=== PATIENT | female | born 1950 | race Caucasian/White ===

== ENCOUNTER 2018-02-13 06:09 | Day surgery (SDC) | payer OTHER, MEDICARE ==
[2018-02-12 09:18] VITALS: BMI 29.2
[2018-02-13] MEDS ORDERED: LIDOCAINE 1%/EPI 1:100000 (20 ML MULTI DOSE VIAL) ONE (07:24)
[2018-02-13] MEDS ORDERED: PROPOFOL 20 ML ONE ×5 (07:25)
[2018-02-13] MEDS ORDERED: SUCCINYLCHOLINE CHLORIDE 200 MG/10 ML VIAL ONE (07:25)
[2018-02-13] MEDS ORDERED: MIDAZOLAM HCL 2 MG/2 ML SINGLE DOSE VIAL ONE (07:25)
[2018-02-13] MEDS ORDERED: BUPIVACAINE HCL/PF 0.5% (5MG/ML) 10 ML VIAL ONE (07:25)
[2018-02-13] MEDS ORDERED: ePHEDrine SULFATE 50 MG/1 ML AMPULE ONE (07:25)
[2018-02-13] MEDS ORDERED: DEXAMETHASONE SOD PHOSPHATE 4 MG/1 ML VIAL ONE (07:27)
[2018-02-13] MEDS ORDERED: LIDOCAINE HCL/PF 2% SDV 5ML VIAL ONE (07:27)
[2018-02-13] MEDS ORDERED: KETOROLAC TROMETHAMINE 30 MG/1 ML VIAL ONE (07:27)
[2018-02-13] MEDS ORDERED: ceFAZolin SODIUM 1 GM VIAL ONE (07:27)
--- NOTE | 2018-02-13 08:10 | HP ---
Satellite [facility] - Chief Complaint Chief Complaint: RIGHT KNEE PAIN History Source: Patient - Past Medical History Allergies/Adverse Reactions: Allergies Allergy/AdvReac Type Severity Reaction Status Date / Time codeine AdvReac Severe Vomiting Verified 02/13/18 06:40 - Current Medications Current Medications: Home Medications Medication Instructions Recorded Atorvastatin Ca [Lipitor] 10 mg PO DAILY 02/12/18 Bisoprolol 2.5MG/Hctz 6.25MG [Ziac 1 tab PO DAILY 02/12/18 (Nf)] Cholecalciferol (Vitamin D3) 1,000 unit PO DAILY 02/12/18 [Vitamin D3] Meloxicam 7.5 mg PO DAILY 02/12/18 Multivitamins [Tab-A-Vit -] 1 tab PO DAILY 02/12/18 [place]-3 Fatty Acids/Fish Oil [Fish 1 each PO DAILY 02/12/18 Oil 1,000 mg Capsule] Satellite Physical Exam - Physical Examination Vital Signs: Vital Signs Period Temp Pulse Resp BP Sys/[place] Pulse Ox Last 24 Hr 97.9 F-97.9 F 60-60 20-20 135-135/49-49 98 Extremities: Other (+ JOINT LINE TENDERNESS) Satellite Impression/Plan - Impression/Plan Impression: INTERNAL DERANGEMENT RIGHT KNEE Operative Procedure: ARTHROSCOPY RIGHT KNEE Date to be Performed: 02/13/18
[2018-02-13] MEDS ORDERED: BUPIVACAINE HCL/PF 0.5% (5MG/ML) 10 ML VIAL IJ ONE (08:11)
[2018-02-13] MEDS ORDERED: LIDOCAINE 1%/EPI 1:100000 (50 ML MULTI DOSE VIAL) INF ONE (08:11)
--- NOTE | 2018-02-13 08:56 | OP ---
Operative Note - Note: Operative Date: 02/13/18 Pre-Operative Diagnosis: INTERNAL DERANGEMENT RIGHT KNEE Operation: ARTHROSCOPY RIGHT KNEE WITH PARTIAL LM AND CHONDROPLASTY LFC, LAT PLAT AND MFC Post-Operative Diagnosis: Same as Pre-op Surgeon: Napoleon Mccarthy Anesthesia: General Operative Report Dictated: Yes
[2018-02-13 10:00] VITALS: TEMP 97.5
--- NOTE | 2018-02-13 10:04 | OP ---
DATE OF OPERATION: 02/13/2018 PREOPERATIVE DIAGNOSIS: Internal derangement right knee. POSTOPERATIVE DIAGNOSIS: Internal derangement right knee. PROCEDURE PERFORMED: Arthroscopy right knee, partial lateral meniscectomy and chondroplasty medial femoral condyle, lateral femoral condyle and lateral tibial plateau. SURGICAL ATTENDING: Napoleon Mccarthy MD ANESTHESIA: General with LMA. CLOSURE: 4-0 nylon. COMPLICATIONS: None. CONDITION: To the recovery room in stable condition. DESCRIPTION OF PROCEDURE: The patient was taken to the operating room on February 13, 2018. General anesthesia with LMA was administered by the anesthesiologist. IV Kefzol was administered prophylactically prior to the case. The right lower extremity was prepped and draped in the usual sterile fashion. Medial and lateral infrapatellar portals were then made with a 15 blade, followed by a blunt trocar. The scope was placed in the lateral infrapatellar portal, up into the suprapatellar pouch. The knee was inflated with a cocktail of 10 mL of 1% Xylocaine, 10 mL of 0.5% Marcaine, 20 mL of arthroscopic saline. The procedure was then performed. The were visualized to be clean. The medial and lateral gutters were visualized to be clean. The undersurface of the patella and trochlea were basically intact. With valgus stress on the knee, there were some grade 2-3 changes of the medial femoral condyle. Any loose cartilage was debrided using the shaver. The medial femoral condyle was visualized and found to be intact. The medial meniscus was visualized and probed, and found to be intact. At 90 degrees, the ACL was visualized, probed and found to be intact. In the figure-4 position, the lateral compartment was entered. The lateral meniscus was found to have a complex tear. This was debrided back to smooth, stable meniscal tissue using meniscal biter and arthroscopic shaver. The lateral femoral condyle and lateral tibial plateau had grade 4 changes. Any loose articular cartilage was debrided using the shaver. The knee was irrigated with copious amounts of irrigation. The portals were closed using 4-0 nylon. Prior to closure, 20 mL of 0.5% Marcaine was infused into the knee for postoperative analgesia. A sterile pressure dressing was placed over the knee. The patient was awakened from anesthesia and transferred to the recovery room in stable condition, without complication. Estimated blood loss was negligible. NAPOLEON MCCARTHY M.D. [id number]
[2018-02-13 10:13] VITALS: BP 123/74; PULSE 69
--- NOTE | 2018-02-14 16:06 | PATH ---
Surgical Pathology Report Patient Name: SAROJ FANG [facility]. Rec. #: [id number] /Age/Gender: 1950 (Age: 67) / F Account: [id number] Location: [facility] Taken: 02/13/2018 Received: 02/13/2018 Reported: 02/14/2018 Physicians: Napoleon Mccarthy M.D. Specimen(s) Received RIGHT KNEE SHAVINGS Clinical History Tear right knee Final Diagnosis KNEE SHAVINGS, RIGHT, ARTHROSCOPY: FRAGMENTS OF CARTILAGE, DENSE FIBROCONNECTIVE TISSUE, ADIPOSE TISSUE, AND SYNOVIUM. Electronically Signed Zelda Brady M.D. Gross Description Received in formalin, labeled "right knee shavings," is a 5.0 x 4.5 x 0.6 cm. aggregate of conway-yellow soft tissue fragments. A sales account representative portion is submitted in one cassette. /02/13/2018 saudi02/13/2018
== END 2018-02-13 11:45 | disposition home or self-care (01) ==
LOC: JASU-SURG 06:09
PROVIDERS: ATTEND Orthopaedic Surgery
PROC: 0SBC4ZZ Excision of Right Knee Joint, Percutaneous Endoscopic Approach (ICD-10-PCS; 2018-02-13)
PROC: 0SBC4ZZ Excision of Right Knee Joint, Percutaneous Endoscopic Approach (ICD-10-PCS; principal; 2018-02-13 08:00)
DX: S83.271A Complex tear of lateral meniscus, current injury, right knee, initial encounter (principal); X58.XXXA Exposure to other specified factors, initial encounter; Y93.9 Activity, unspecified; Y92.9 Unspecified place or not applicable
CPT/HCPCS: 88304-TC; 94760

== ENCOUNTER 2019-01-23 15:19 | Observation (INO) | payer OTHER, MEDICARE ==
--- NOTE | 2019-01-23 16:08 | PDOC ---
History of Present Illness - General Chief Complaint: Respiratory Stated Complaint: SENT BY PCP Time Seen by Provider: 01/23/19 16:07 - History of Present Illness Initial Comments: 68 year old female with HTN, HLD, BPPV, and chronic back pain presenting with SOB and cough for the past week. States that she started to get a dry cough last weekend which has worsened over week. SHe went to her PCP who gave her ? cefuroxime? which she believes made her nauseous. Her temperature at hoem has been running in the 99s and she states that she usually runs in the 97s-low 98s. She has had minor relief with her inhaler. She has had nausea and vomiting since Sunday. Denies any chest pain, sputum production, diarrhea, headahce, or other symptoms. 01/23/19 16:25 Past History - Past Medical History Allergies/Adverse Reactions: Allergies Allergy/AdvReac Type Severity Reaction Status Date / Time codeine AdvReac Severe Vomiting Verified 02/13/18 06:40 Home Medications: Ambulatory Orders Atorvastatin Ca [Lipitor] 10 mg PO DAILY 02/12/18 Bisoprolol 2.5MG/Hctz 6.25MG [Ziac (Nf)] 1 tab PO DAILY 02/12/18 Cholecalciferol (Vitamin D3) [Vitamin D3] 1,000 unit PO DAILY 02/12/18 Meloxicam 7.5 mg PO DAILY 02/12/18 Multivitamins [Tab-A-Vit -] 1 tab PO DAILY 02/12/18 [place]-3 Fatty Acids/Fish Oil [Fish Oil 1,000 mg Capsule] 1 each PO DAILY Oxycodone HCl/Acetaminophen [Percocet 5-325 mg Tablet -] 1 - 2 tab PO Q6H #30 tab MDD 8 02/13/18 Anemia: No Asthma: No Cancer: No Cardiac Disorders: No CVA: No COPD: No CHF: No Dementia: No Diabetes: No GI Disorders: No Disorders: No HTN: Yes Hypercholesterolemia: No Liver Disease: No Seizures: No Thyroid Disease: No - Surgical History Orthopedic Surgery: Yes (LEFT TOTAL KNEE;) - Immunization History Immunization Up to Date: No - Suicide/Smoking/Psychosocial Hx Smoking History: Never smoked Have you smoked in the past 12 months: No Information on smoking cessation initiated: No Hx Alcohol Use: No Drug/Substance Use Hx: No Substance Use Type: Alcohol Hx Substance Use Treatment: No *Physical Exam - Vital Signs Last Vital Signs Temp Pulse Resp BP Pulse Ox 97.8 F 90 16 146/71 100 01/23/19 15:29 01/23/19 15:29 01/23/19 15:29 01/23/19 15:29 01/23/19 15:29 ED Treatment Course - LABORATORY CBC & Chemistry Diagram: 01/23/19 16:40 01/23/19 16:40 Medical Decision Making - Medical Decision Making 68 year old female with HTN presenting with cough and SOB for the past week despite 4 days of cefuroxime treatment. Of note she also started lisinopril about one week ago so this could possibly be driving her cough. Left lower lobe reveled some adventitious sounds but CXR normal. PSI/ Port Score 80 and patient seems to have failed outpatient PO antibiotic therapy, also she has been vomiting when taking her PO cefuroxime. If PNA or bronchitis is not ultimately the attributing pathology then ANTONIA-I cough should be investigated further She will need at least short term IV abx therapy. 01/23/19 18:13 *DC/Admit/Observation/Transfer Diagnosis at time of Disposition: Hyponatremia - Discharge Dispostion Condition at time of disposition: Stable - Referrals Referrals: Devorah Gallego MD [Primary Care Provider] - - Patient Instructions - Post Discharge Activity
[2019-01-23] MEDS: ALBUTEROL SO4 2.5/IPRATROPIUM 0.5 INH SOL 3 ML VIAL.NEB. NEB SCH ×3 (16:52→19:15)
[2019-01-23 17:09] LABS: VENOUS PC02 27.2 mmHg (41-51); VENOUS PH 7.54 (7.31-7.41)
[2019-01-23 17:15] LABS: VENOUS PO2 23.4 mmHg (30-40)
[2019-01-23 17:23] LABS: BASO % 0.4 % (0-2.0); EOS % 0.4 % (0-4.5); HEMATOCRIT 38.5 % (32.4-45.2); HEMOGLOBIN 13.4 GM/dL (10.7-15.3); LYMPH % 11.8 % (8-40); MCH 32.9 pg (25.7-33.7); MCHC 34.9 g/dl (32.0-36.0); MEAN CELL VOLUME 94.1 fl (80-96); MONO % 5.3 % (3.8-10.2); NEUT % 82.1 % (42.8-82.8); PLATELET COUNT 291 K/MM3 (134-434); RBC 4.09 M/mm3 (3.60-5.2); RDW 12.4 % (11.6-15.6); WHITE BLOOD COUNT 5.8 K/mm3 (4.0-10.0)
[2019-01-23] MEDS ORDERED: METOCLOPRAMIDE HCL INJECTION 10 MG/2 ML VIAL IVPUSH ONE (17:27)
[2019-01-23] MEDS ORDERED: SODIUM CHLORIDE 0.9% 1000 ML INFUS.BAG IV ONE (17:27)
[2019-01-23] MEDS ORDERED: ALBUTEROL SO4 2.5/IPRATROPIUM 0.5 INH SOL 3 ML VIAL.NEB. NEB ONE ×3 (17:27→19:17)
[2019-01-23] MEDS ORDERED: ACETAMINOPHEN 1000 MG/100 ML VIAL (NON FORMULARY) IVPB ONE (17:27)
[2019-01-23] MEDS ORDERED: MECLIZINE HCL 25 MG TABLET (FP) PO ONE (17:29)
[2019-01-23 17:37] LABS: INR 1.05 (0.83-1.09); PROTHROMBIN TIME (PATIENT) 12.4 SEC (9.7-13.0)
[2019-01-23 17:55] LABS: ALBUMIN 3.9 g/dl (3.4-5.0); ALK PHOS 98 U/L (45-117); ANION GAP 10 MMOL/L (8-16); BILIRUBIN,TOTAL 0.4 mg/dL (0.2-1); BLOOD UREA NITROGEN 15 mg/dL (7-18); CALCIUM 9.5 mg/dL (8.5-10.1); CHLORIDE 96 mmol/L (98-107); CO2 21 mmol/L (21-32); CREATININE 0.4 mg/dL (0.55-1.3); GLUCOSE,RANDOM 138 mg/dL (74-106); POTASSIUM 4.2 mmol/L (3.5-5.1); SGOT/AST 37 U/L (15-37); SGPT/ALT 70 U/L (13-61); SODIUM 127 mmol/L (136-145); TOT PROT 7.3 g/dl (6.4-8.2)
--- NOTE | 2019-01-23 18:04 | PDOC ---
Documentation entered by Linda Tao SCRIBE, acting as scribe for Gayle Aragon DO. Gayle Aragon DO: This documentation has been prepared by the Aislinn monroy Daisy, SCRIBE, under my direction and personally reviewed by me in its entirety. I confirm that the documentation accurately reflects all work, treatment, procedures, and medical decision making performed by me. Attending Attestation - Resident Resident Name: Kat Mendieta - ED Attending Attestation I have performed the following: I have examined & evaluated the patient, The case was reviewed & discussed with the resident, I agree w/resident's findings & plan - HPI HPI: 01/23/19 17:20 The patient is a 68 YOF with a PMH of HTN, HLD, BPPV, and chronic back pain who presents to the ER with a 1 week history of shortness of breath and dry cough. Patient used her inhaler at home with minimal relief of her shortness of breath. She was given cefuroxime since 01/20, which she reports has made her nauseous. Patient was also seen by Dr. Mati Harman and had her hydrochlorothiazide changed to lisinopril secondary to her hyponatremia. The patient denies chest pain, headache and dizziness. Denies fever, chills, nausea, vomit, diarrhea and constipation. Denies dysuria, frequency, urgency and hematuria. Allergies: codeine Past surgical history: None reported. Social history: No reported alcohol, drug or cigarette use. PCP: Dr. Gallego - Physicial Exam PE: 01/23/19 17:24 ADULT PHYSICAL EXAM Constitutional: Awake, alert, oriented. No acute distress. ENT: Mucous membranes are moist and intact. Posterior pharynx without exudates or erythema. Uvula midline. Cardiovascular: Regular rate. Regular rhythm. S1, S2 regular. Distal pulses are 2+ and symmetric. Pulmonary/Chest: (+) coarse rhonchorous breath sounds at the right base. (+) conversational dyspnea, speaking in 4 word sentences. No wheezing, rales or rhonchi. Abdominal: Soft and non-distended. There is no tenderness. No rebound, guarding or rigidity. No organomegaly. No palpable masses. Good bowel sounds. Musculoskeletal: No edema. No cyanosis. No clubbing. Full range of motion in all extremities. Nocalf tenderness. Radial/pedal pulses are intact and 2+ bilaterally Skin: Skin is warm and dry. Neurological: Cranial nerves II-XII are grossly intact. Psychiatric: Good eye contact. Normal interaction, affect and behavior. - Medical Decision Making 01/23/19 17:54 a/p: 68yo female with sob/cough/sinus congestion and vertigo -hx of bronchitis and hx of BPPV, dizzy and coughing since sunday -saw PMD and started on cerfuroxime -also switched from hctz to lisinopril, no angioedema, suspect more infectious etiology given sinus congestion and coarse bs on R base -will send labs, cultures, cxr, ekg -neb, fluids, meclizine, reglan -pt with conversational dyspnea -will need admission 01/23/19 18:03 cxr clear, coarse bs, will obtain ct to eval for pna 01/23/19 18:12 pt with hyponatremia 01/23/19 18:[address] Syed covering Dr. Mclean overnight, accepts pt to obs for hyponatremia Heart Score/ECG Review - ECG Intrepretation Comment:: 01/23/19 18:03 sinus at 86, nl axis, nl interval, no acute st/t wave findings
[2019-01-23] MEDS ORDERED: VANCOMYCIN 1 GM in D5W (PRE-DOCKED) 1,000 MG/250 ML IVPB ONE (18:22)
[2019-01-23] MEDS ORDERED: PIPERACILLIN/TAZOB 3.375 GM 3.375 GM in DEXTROSE 5%-WATER - 50 ML IVPB ONE (18:23)
[2019-01-23] MEDS ORDERED: MECLIZINE HCL 25 MG TABLET (FP) ONE (18:35)
[2019-01-23] MEDS ORDERED: METOCLOPRAMIDE HCL INJECTION 10 MG/2 ML VIAL ONE (18:35)
[2019-01-23] MEDS ORDERED: PIPERACILLIN/TAZOB 3.375 GM 3.375 GM/50 ML BAG IVPB ONE (18:36)
--- NOTE | 2019-01-23 19:04 | HP ---
CHIEF COMPLAINT: dry cough, nausea, vomiting PCP: [facility] HISTORY OF PRESENT ILLNESS: 68 yo F c/o dry cough and mild shortness of breath since about 01/19. Denied any significant sputum production, sick contacts, fevers, or recent travels. Used inhaler at home with no relief. Patient was switched from HCTZ to lisinopril about 2 wks ago because of hyponatremia. Denied tongue or lip swelling. +Nausea , vomiting. ER course was notable for: (1) tylenol (2) meclizine (3) IV fluids Recent Travel:no PAST MEDICAL HISTORY:HTN, HLD, BPPV, and chronic back pain PAST SURGICAL HISTORY: hip replacement, knee replacement Social History: Smoking: no Alcohol: no Drugs: no Ex PT Family History: none mentioned Allergies codeine Adverse Reaction (Severe, Verified 02/13/18 06:40) Vomiting DIZZINESS-NAUSEA HOME MEDICATIONS: Home Medications Medication Instructions Recorded Atorvastatin Ca [Lipitor] 10 mg PO DAILY 02/12/18 Bisoprolol 2.5MG/Hctz 6.25MG [Ziac 1 tab PO DAILY 02/12/18 (Nf)] Cholecalciferol (Vitamin D3) 1,000 unit PO DAILY 02/12/18 [Vitamin D3] Meloxicam 7.5 mg PO DAILY 02/12/18 Multivitamins [Tab-A-Vit -] 1 tab PO DAILY 02/12/18 [place]-3 Fatty Acids/Fish Oil [Fish 1 each PO DAILY 02/12/18 Oil 1,000 mg Capsule] Oxycodone HCl/Acetaminophen 1 - 2 tab PO Q6H #30 tab MDD 8 02/13/18 [Percocet 5-325 mg Tablet -] REVIEW OF SYSTEMS CONSTITUTIONAL: Absent: fever, chills, diaphoresis, generalized weakness, malaise, loss of appetite, weight change HEENT: Absent: rhinorrhea, nasal congestion, throat pain, throat swelling, difficulty swallowing, mouth swelling, ear pain, eye pain, visual changes CARDIOVASCULAR: Absent: chest pain, syncope, palpitations, irregular heart rate, lightheadedness , peripheral edema RESPIRATORY: Absent:, dyspnea with exertion, orthopnea, wheezing, stridor, hemoptysis present- cough, shortness of breath GASTROINTESTINAL: Absent: abdominal pain, abdominal distension, diarrhea, constipation, melena, hematochezia present- nausea, vomiting, GENITOURINARY: Absent: dysuria, frequency, urgency, hesitancy, hematuria, flank pain, genital pain MUSCULOSKELETAL: Absent: myalgia, arthralgia, joint swelling, back pain, neck pain SKIN: Absent: rash, itching, pallor HEMATOLOGIC/IMMUNOLOGIC: Absent: easy bleeding, easy bruising, lymphadenopathy, frequent infections ENDOCRINE: Absent: unexplained weight gain, unexplained weight loss, heat intolerance, cold intolerance NEUROLOGIC: Absent: headache, focal weakness or paresthesias, dizziness, unsteady gait, seizure, mental status changes, bladder or bowel incontinence PSYCHIATRIC: Absent: anxiety, depression, suicidal or homicidal ideation, hallucinations. PHYSICAL EXAMINATION Vital Signs - 24 hr 01/23/19 15:29 Temperature 97.8 F Pulse Rate 90 Respiratory 16 Rate Blood Pressure 146/71 O2 Sat by Pulse 100 Oximetry (%) GENERAL: Awake, alert, and fully oriented, in no acute distress. HEAD: Normal with no signs of trauma. EYES: Pupils equal, round and reactive to light, extraocular movements intact, sclera anicteric, conjunctiva clear. No lid lag. EARS, NOSE, THROAT: Ears normal, nares patent, oropharynx clear without exudates. dry mucous membranes. NECK: Normal range of motion, supple without lymphadenopathy, JVD, or masses. LUNGS: Breath sounds equal, clear to auscultation bilaterally. No wheezes, and no crackles. No accessory muscle use. HEART: Regular rate and rhythm, normal S1 and S2 without murmur, rub or gallop. ABDOMEN: Soft, nontender, not distended, normoactive bowel sounds, no guarding, no rebound, no masses. MUSCULOSKELETAL: Normal range of motion at all joints. No bony deformities or tenderness. No CVA tenderness. UPPER EXTREMITIES: 2+ pulses, warm, well-perfused. No cyanosis. No clubbing. No peripheral edema. LOWER EXTREMITIES: 2+ pulses, warm, well-perfused. No calf tenderness. No peripheral edema. NEUROLOGICAL: Cranial nerves II-XII intact. Normal speech. PSYCHIATRIC: Cooperative. Good eye contact. Appropriate mood and affect. SKIN: Warm, dry, normal turgor, no rashes or lesions noted, normal capillary refill. Laboratory Results - last 24 hr 01/23/19 01/23/19 01/23/19 16:00 16:40 16:40 WBC 5.8 RBC 4.09 Hgb 13.4 Hct 38.5 MCV 94.1 MCH 32.9 MCHC 34.9 RDW 12.4 Plt Count 291 MPV 8.0 Absolute Neuts (auto) 4.8 Neutrophils % 82.1 Lymphocytes % 11.8 Monocytes % 5.3 Eosinophils % 0.4 Basophils % 0.4 Nucleated RBC % 0 PT with INR 12.40 INR 1.05 VBG pH 7.54 H POC VBG pCO2 27.2 L POC VBG pO2 23.4 L VBG HCO3 22.9 L VBG O2 Sat (Jacqueline) 45.6 L VBG Base Excess 1.7 Sodium Potassium Chloride Carbon Dioxide Anion Gap BUN Creatinine Creat Clearance w eGFR Random Glucose Lactic Acid Calcium Total Bilirubin AST ALT Alkaline Phosphatase Troponin I Total Protein Albumin Influenza A (Rapid) Influenza B (Rapid) 01/23/19 01/23/19 01/23/19 16:40 16:40 16:50 WBC RBC Hgb Hct MCV MCH MCHC RDW Plt Count MPV Absolute Neuts (auto) Neutrophils % Lymphocytes % Monocytes % Eosinophils % Basophils % Nucleated RBC % PT with INR INR VBG pH POC VBG pCO2 POC VBG pO2 VBG HCO3 VBG O2 Sat (Jacqueline) VBG Base Excess Sodium 127 L Potassium 4.2 Chloride 96 L Carbon Dioxide 21 Anion Gap 10 BUN 15 Creatinine 0.4 L Creat Clearance w eGFR 157.80 Random Glucose 138 H Lactic Acid 1.6 Calcium 9.5 Total Bilirubin 0.4 AST 37 ALT 70 H Alkaline Phosphatase 98 Troponin I < 0.02 Total Protein 7.3 Albumin 3.9 Influenza A (Rapid) Negative Influenza B (Rapid) Negative imaging reviewed ekg reviewed ASSESSMENT/PLAN: #68yo woman with sudden onset dry cough. Likely related to ACEi as patient just started this medication and it is common side effect. Do not suspect angioedema at this time. Less likely to be pneumonia as clear lungs, no fever, sputum production. -observation -avoid ACEi -CT of chest to r/o infiltrates - h -benadryl -prednisone -robitussin DM for cough #Hyponatremia - may be related to HCTZ use as patient recently d/c. She appears to be hypovolemic as well. -no diuretics -i/o -daily weights -TSH -urine osm -serum osm -urine cr, na -renal consult -bed rest #Nausea/vomiting - may be related to hyponatremia vs BPPV -meclizine -zofran prn #Chronic back pain -percocet prn - home med #DVT ppx -heparin sc Visit type - Emergency Visit Emergency Visit: Yes ED Registration Date: 01/23/19 Care time: The patient presented to the Emergency Department on the above date and was hospitalized for further evaluation of their emergent condition. - New Patient This patient is new to me today: Yes Date on this admission: 01/23/19 - Critical Care Critical Care patient: No
[2019-01-23] MEDS ORDERED: ONDANSETRON 4 MG/2 ML VIAL IVPUSH PRN (19:07)
[2019-01-23] MEDS ORDERED: MECLIZINE HCL 12.5 MG TABLET PO PRN (19:13)
[2019-01-23] MEDS ORDERED: oxyCODONE HCL 5 MG TABLET PO PRN (19:16)
[2019-01-23] MEDS ORDERED: ACETAMINOPHEN 325 MG TABLET (FP) PO PRN (19:16)
[2019-01-23] MEDS ORDERED: guaiFENesin/D-METHORPHAN HB 10 ML UNIT-DOSE CUPS PO PRN (19:57)
[2019-01-23] MEDS ORDERED: diphenhydrAMINE HCL 25 MG CAPSULE (FP) PO ONE (20:15)
[2019-01-23] MEDS ORDERED: predniSONE 20 MG TABLET (UD) PO ONE (20:15)
[2019-01-23 21:29] LABS: CREATININE, URINE RANDOM 59 mg/dL (30-150)
[2019-01-23] MEDS: SODIUM CHLORIDE 1,000 ML IV SCH (21:45)
[2019-01-23] MEDS: HEPARIN NA (PORCINE) 5,000 UNITS/ML 1ML VIAL SQ SCH (21:46)
[2019-01-24 00:33] VITALS: BMI 28.3
[2019-01-24] MEDS ORDERED: SODIUM CHLORIDE FOR INHALATION 3 ML VIAL.NEB IH PRN (02:18)
[2019-01-24 02:29] LABS: OSMOLALITY,SERUM 270 mosm/kg (278-305)
[2019-01-24 07:10] LABS: BASO % 0.3 % (0-2.0); HEMATOCRIT 36.1 % (32.4-45.2); HEMOGLOBIN 12.4 GM/dL (10.7-15.3); LYMPH % 16.6 % (8-40); MCHC 34.4 g/dl (32.0-36.0); MEAN CELL VOLUME 93.3 fl (80-96); MEAN PLT VOLUME 8.1 fl (7.5-11.1); MONO % 3.4 % (3.8-10.2); NEUT % 79.7 % (42.8-82.8); PLATELET COUNT 296 K/MM3 (134-434); RBC 3.87 M/mm3 (3.60-5.2); RDW 12.4 % (11.6-15.6); WHITE BLOOD COUNT 4.6 K/mm3 (4.0-10.0)
[2019-01-24 08:06] LABS: ANION GAP 9 MMOL/L (8-16); BLOOD UREA NITROGEN 10 mg/dL (7-18); CALCIUM 8.8 mg/dL (8.5-10.1); CHLORIDE 101 mmol/L (98-107); CO2 23 mmol/L (21-32); CREATININE 0.4 mg/dL (0.55-1.3); GLUCOSE,RANDOM 121 mg/dL (74-106); POTASSIUM 3.9 mmol/L (3.5-5.1); SODIUM 134 mmol/L (136-145)
[2019-01-24] MEDS ORDERED: PT OWN MED DRAWER 7, Y5N ONE ×2 (10:27→17:25)
[2019-01-24] MEDS: MULTIVITAMINS (DAILY MVI) TABLET (FP) PO SCH (10:39)
[2019-01-24] MEDS: HEPARIN NA (PORCINE) 5,000 UNITS/ML 1ML VIAL SQ SCH ×2 (10:39→22:03)
--- NOTE | 2019-01-24 10:47 | EKG ---
Test Reason : Blood Pressure : / mmHG Vent. Rate : 086 BPM Atrial Rate : 086 BPM P-R Int : 188 ms QRS Dur : 076 ms QT Int : 376 ms P-R-T Axes : 069 027 053 degrees QTc Int : 449 ms NORMAL SINUS RHYTHM POSSIBLE LEFT ATRIAL ENLARGEMENT NO PREVIOUS ECGS AVAILABLE Confirmed by MARINA MENDEZ MD ([id number]) on 01/24/2019 10:46:54 AM Referred By: Confirmed By:MARINA MENDEZ MD
--- NOTE | 2019-01-24 12:50 | CONSULT ---
Consult - text type - Consultation Consultation Note: Renal consult for Hyponatremia This is a 68 year old woman with Hx of BPPV, Hypertension, HLD, Hyponatremia (suspected due to HCTZ) who presented with complaints of persistent cough, dizziness and weakness and found to have Na of 127 on admission. Prior Na was 134->133->131. HCTZ was discontinued 01/06. She was on HCTZ/Lisinopril and she was maintained on lisinpril alone. PT reports that she recently had a cold but cough did not get better. Was given Abx by PMD but was unable to tolerate it. No fever or chills. No N/V/D. No CP. Denies excessive water intake at home. Oral intake has been poor. Has been unable to sleep the last few days. PMhx: as above Social Hx: No T/A/D Family Hx: NC ROS: as per HPI Home Medications Medication Instructions Recorded Atorvastatin Ca [Lipitor] 10 mg PO DAILY 02/12/18 Bisoprolol 2.5MG/Hctz 6.25MG [Ziac 1 tab PO DAILY 02/12/18 (Nf)] Cholecalciferol (Vitamin D3) 1,000 unit PO DAILY 02/12/18 [Vitamin D3] Meloxicam 7.5 mg PO DAILY 02/12/18 Multivitamins [Tab-A-Vit -] 1 tab PO DAILY 02/12/18 [place]-3 Fatty Acids/Fish Oil [Fish 1 each PO DAILY 02/12/18 Oil 1,000 mg Capsule] Oxycodone HCl/Acetaminophen 1 - 2 tab PO Q6H #30 tab MDD 8 02/13/18 [Percocet 5-325 mg Tablet -] Vital Signs Temperature 97.4 F L 01/24/19 10:00 Pulse Rate 80 01/24/19 10:00 Respiratory Rate 20 01/24/19 10:00 Blood Pressure 135/71 01/24/19 10:00 O2 Sat by Pulse Oximetry (%) 100 01/23/19 22:00 Intake & Output 01/21/19 01/22/19 01/23/19 01/24/19 23:59 23:59 23:59 23:59 Intake Total 0 950 Output Total 1000 Balance 0 -50 Weight 70.398 kg 70.398 kg NAD awake and alert neck supple, no JVD MMM RRR, no M/R CTA, no rales or wheeze soft NT/ND no LE edema, clubbing or cyanosis CBC, BMP 01/24/19 06:00 01/24/19 06:00 Current Medications Acetaminophen (Tylenol -) 325 mg PO Q6H PRN PRN Reason: PAIN LEVEL 6-10 Atorvastatin Calcium (Lipitor -) 10 mg PO HS [facility] Guaifenesin (Robitussin Dm -) 10 ml PO Q6H PRN PRN Reason: COUGH Heparin Sodium (Porcine) (Heparin -) 5,000 unit SQ BID [facility] Last Admin: 01/24/19 10:39 Dose: 5,000 unit Sodium Chloride (Normal Saline -) 1,000 mls @ 75 mls/hr IV ASDIR [facility] Last Admin: 01/23/19 21:45 Dose: 75 mls/hr Losartan Potassium (Cozaar -) 25 mg PO DAILY [facility] Meclizine HCl (Antivert -) 12.5 mg PO Q8H PRN PRN Reason: VERTIGO Multivitamins/Minerals/Vitamin C (Tab-A-Vit -) 1 tab PO DAILY [facility] Last Admin: 01/24/19 10:39 Dose: 1 tab Ondansetron HCl (Zofran Injection) 4 mg IVPUSH Q6H PRN PRN Reason: NAUSEA AND/OR VOMITING Oxycodone HCl (Roxicodone -) 5 mg PO Q6H PRN PRN Reason: PAIN LEVEL 6-10 Sodium Chloride (Normal Saline For Inhalation -) 3 ml IH Q6H PRN PRN Reason: COUGH 68 year old woman with Hx of BPPV, Hypertension, HLD, Hyponatremia ( suspected due to HCTZ) who presented with complaints of persistent cough, dizziness and weakness and found to have Na of 127 on admission. #Acute Hypovolemic hyponatremia now improved #Cough/enlarged Chest LN's/granuloma seen on CT chest #Hypertension #HLD Will continue isotonic saline for additional 12-24 hours no indication for 3% saline oral water intake as per thirst maintain of HCTZ Will switch Lisinopril to losartan as ACEi may be contributing to cough will consult Pulmonary regarding abnormal CT lung findings and persistent cough Thank you Will follow Kimani Charles DO
--- NOTE | 2019-01-24 13:26 | PN ---
Progress Note, Physician Chief Complaint: patient complaining of her cough - Current Medication List Current Medications: Active Medications Acetaminophen (Tylenol -) 325 mg PO Q6H PRN PRN Reason: PAIN LEVEL 6-10 Atorvastatin Calcium (Lipitor -) 10 mg PO HS GABI Guaifenesin (Robitussin Dm -) 10 ml PO Q6H PRN PRN Reason: COUGH Heparin Sodium (Porcine) (Heparin -) 5,000 unit SQ BID [facility] Last Admin: 01/24/19 10:39 Dose: 5,000 unit Sodium Chloride (Normal Saline -) 1,000 mls @ 75 mls/hr IV ASDIR GABI Last Admin: 01/23/19 21:45 Dose: 75 mls/hr Piperacillin Sod/Tazobactam (Sod 3.375 gm/ Dextrose) 50 mls @ 100 mls/hr IVPB Q8H-IV GABI; Protocol Losartan Potassium (Cozaar -) 25 mg PO DAILY [facility] Meclizine HCl (Antivert -) 12.5 mg PO Q8H PRN PRN Reason: VERTIGO Multivitamins/Minerals/Vitamin C (Tab-A-Vit -) 1 tab PO DAILY [facility] Last Admin: 01/24/19 10:39 Dose: 1 tab Ondansetron HCl (Zofran Injection) 4 mg IVPUSH Q6H PRN PRN Reason: NAUSEA AND/OR VOMITING Oxycodone HCl (Roxicodone -) 5 mg PO Q6H PRN PRN Reason: PAIN LEVEL 6-10 Prednisone (Deltasone -) 40 mg PO DAILY [facility] Fluticasone/Salmeterol (Advair 100mcg/50mcg -) 1 puff IH BID [facility] Sodium Chloride (Normal Saline For Inhalation -) 3 ml IH Q6H PRN PRN Reason: COUGH - Objective Vital Signs: Vital Signs Temperature 97.4 F L 01/24/19 10:00 Pulse Rate 80 01/24/19 10:00 Respiratory Rate 20 01/24/19 10:00 Blood Pressure 135/71 01/24/19 10:00 O2 Sat by Pulse Oximetry (%) 100 01/23/19 22:00 Constitutional: Yes: Calm Cardiovascular: Yes: Regular Rate and Rhythm, S1, S2 Respiratory: Yes: Rhonchi Gastrointestinal: Yes: Normal Bowel Sounds, Soft Edema: No Labs: CBC, BMP 01/24/19 06:00 04/19/19 06:00 INR, PTT INR 1.05 (0.83-1.09) 01/23/19 16:40 Problem List - Problems (1) Cough Assessment/Plan: pulm consult chest ct reviwed prednsione iv abx for now coy change to oral abx cannot tolerate cefuroxime made her nauseous and quessy per patient when she took it as in outpatient- so coy give augmentin advair Code(s): R05 - COUGH (2) Hyponatremia Assessment/Plan: iv f fluids for another 24 hrs renal on board stop hctz Code(s): E87.1 - HYPO-OSMOLALITY AND HYPONATREMIA (3) HTN (hypertension) Assessment/Plan: losartan stop lisinopril as patient is coughing stop hctz bc of hyponatremia Code(s): I10 - ESSENTIAL (PRIMARY) HYPERTENSION (4) HTN (hypertension) Code(s): I10 - ESSENTIAL (PRIMARY) HYPERTENSION
[2019-01-24] MEDS ORDERED: DEXTROSE 5%-WATER - 50 ML IVPB ONE ×2 (14:21→17:20)
[2019-01-24] MEDS ORDERED: PIPERACILLIN/TAZOBACTAM 3.375 GM VIAL IVPB ONE ×2 (14:21→17:20)
[2019-01-24] MEDS: predniSONE 20 MG TABLET (UD) PO SCH (14:28)
[2019-01-24] MEDS: FLUTICASONE/SALMETEROL 100 MCG/50 MCG DISKUS IH SCH ×2 (14:29→22:04)
[2019-01-24] MEDS: PIPERACILLIN/TAZOB 3.375 GM 3.375 GM in DEXTROSE 5%-WATER - 50 ML IVPB SCH ×2 (14:29→17:35)
[2019-01-24] MEDS: LOSARTAN POTASSIUM 50 MG TABLET (FP) PO SCH (14:29)
--- NOTE | 2019-01-24 16:15 | CON.PULM ---
Consult Consult Specialty:: PULMONARY Referred by:: BUCK Reason for Consultation:: COUGH/ABN CT CHEST - History of Present Illness Chief Complaint: COUGH History of Present Illness: 68 year old female with HTN, HLD, BPPV, and chronic back pain presenting with SOB and cough for the past week. States that she started to get a dry cough last weekend which has worsened over week. SHe went to her PCP who gave her ? cefuroxime? which she believes made her nauseous. Her temperature at hoem has been running in the 99s and she states that she usually runs in the 97s-low 98s. She has had minor relief with her inhaler. She has had nausea and vomiting since Sunday. Denies any chest pain, sputum production, diarrhea, headahce, or other symptoms. - History Source History Provided By: Patient, Medical Record Limitations to Obtaining History: No Limitations - Past Medical History RIP TAILER: No: Alzheimer's Cardio/Vascular: Yes: HTN, Hyperlipdemia. No: AFIB Pulmonary: No: COPD Gastrointestinal: No: Cancer Hepatobiliary: No: Cirrhosis Reproductive: Yes: Postmenopausal Heme/Onc: No: Anemia Endocrine: No: Diabetes Mellitus - Past Surgical History Additional Surgical History: HIP REPLACEMENT. KNEE REPLACEMENT - Alcohol/Substance Use Hx Alcohol Use: No - Smoking History Smoking history: Never smoked Have you smoked in the past 12 months: No - Social History ADL: Independent Place of : [facility] History of Recent Travel: No Home Medications - Allergies Allergies/Adverse Reactions: Allergies Allergy/AdvReac Type Severity Reaction Status Date / Time codeine AdvReac Severe Vomiting Verified 02/13/18 06:40 - Home Medications Home Medications: Ambulatory Orders Atorvastatin Ca [Lipitor] 10 mg PO DAILY 02/12/18 Cholecalciferol (Vitamin D3) [Vitamin D3] 1,000 unit PO DAILY 02/12/18 Meloxicam 7.5 mg PO DAILY 02/12/18 Multivitamins [Tab-A-Vit -] 1 tab PO DAILY 02/12/18 [place]-3 Fatty Acids/Fish Oil [Fish Oil 1,000 mg Capsule] 1 each PO DAILY Oxycodone HCl/Acetaminophen [Percocet 5-325 mg Tablet -] 1 - 2 tab PO Q6H #30 tab MDD 8 02/13/18 Losartan Potassium [Cozaar -] 25 mg PO DAILY #30 tablet MDD 1 01/24/19 Family Disease History - Family Disease History Family History: Unremarkable Review of Systems - Review of Systems Cardiovascular: reports: Chest Pain. denies: Edema, Palpitations Respiratory: reports: Cough, SOB on Exertion. denies: Hemoptysis, Wheezing Physical Exam Vital Sings: Vital Signs Temperature 98.2 F 01/24/19 14:02 Pulse Rate 90 01/24/19 14:02 Respiratory Rate 20 01/24/19 14:02 Blood Pressure 142/81 01/24/19 14:02 O2 Sat by Pulse Oximetry (%) 100 01/23/19 22:00 Constitutional: Yes: Calm Eyes: Yes: EOM Intact HENT: Yes: Normocephalic Neck: Yes: Trachea Midline Cardiovascular: Yes: Regular Rate and Rhythm Respiratory: Yes: CTA Bilaterally Gastrointestinal: Yes: Normal Bowel Sounds Edema: No Labs: CBC, BMP 01/24/19 06:00 01/24/19 06:00 Imaging - Results Chest X-ray: Report Reviewed, Image Reviewed Cat Scan: Report Reviewed, Image Reviewed Problem List - Problems (1) Calcified granuloma of lung Code(s): J84.10 - PULMONARY FIBROSIS, UNSPECIFIED (2) Cough Code(s): R05 - COUGH (3) HTN (hypertension) Code(s): I10 - ESSENTIAL (PRIMARY) HYPERTENSION (4) Hyponatremia Code(s): E87.1 - HYPO-OSMOLALITY AND HYPONATREMIA (5) Goiter Code(s): E04.9 - NONTOXIC GOITER, UNSPECIFIED Assessment/Plan COUGH LIKELY DUE TO ACUTE BRONCHITIS ANTONIA CAN BE CONTRIBUTING TO MILD CHRONIC COMPONENT CALCIFIED GRANULOMA OF NO PARTICULAR CONCERN H/O OF MULTINODULAR GOITER LIKELY RESPONSIBLE FOR MEDIASTINAL IMAGING ABNORMALITY WHICH CAN BE FOLLOWED AN OUTPATIENT DISCHARGE PLANNING Mamadou ANG MD
[2019-01-24] MEDS: SODIUM CHLORIDE 1,000 ML IV SCH ×2 (17:30→22:05)
[2019-01-24] MEDS ORDERED: ATORVASTATIN CA 10 MG TABLET (FP) PO SCH (22:00)
[2019-01-25] MEDS ORDERED: PIPERACILLIN/TAZOBACTAM 3.375 GM VIAL IVPB ONE ×2 (00:09→07:58)
[2019-01-25] MEDS ORDERED: DEXTROSE 5%-WATER - 50 ML IVPB ONE ×2 (00:09→07:59)
[2019-01-25] MEDS: PIPERACILLIN/TAZOB 3.375 GM 3.375 GM in DEXTROSE 5%-WATER - 50 ML IVPB SCH ×2 (01:18→09:55)
[2019-01-25 07:58] LABS: BASO % 0.3 % (0-2.0); EOS % 0.2 % (0-4.5); HEMATOCRIT 36.1 % (32.4-45.2); HEMOGLOBIN 12.3 GM/dL (10.7-15.3); LYMPH % 23.2 % (8-40); MCH 31.6 pg (25.7-33.7); MCHC 34.1 g/dl (32.0-36.0); MEAN CELL VOLUME 92.6 fl (80-96); MEAN PLT VOLUME 8.1 fl (7.5-11.1); MONO % 7.1 % (3.8-10.2); NEUT % 69.2 % (42.8-82.8); PLATELET COUNT 302 K/MM3 (134-434); RDW 12.6 % (11.6-15.6); WHITE BLOOD COUNT 6.8 K/mm3 (4.0-10.0)
[2019-01-25 08:23] LABS: ALBUMIN 3.6 g/dl (3.4-5.0); ALK PHOS 77 U/L (45-117); ANION GAP 8 MMOL/L (8-16); BILIRUBIN,TOTAL 0.3 mg/dL (0.2-1); BLOOD UREA NITROGEN 9 mg/dL (7-18); CHLORIDE 101 mmol/L (98-107); CO2 25 mmol/L (21-32); CREATININE 0.4 mg/dL (0.55-1.3); GLUCOSE,RANDOM 88 mg/dL (74-106); MAGNESIUM 2.2 mg/dL (1.8-2.4); POTASSIUM 3.7 mmol/L (3.5-5.1); SGOT/AST 25 U/L (15-37); SGPT/ALT 52 U/L (13-61); SODIUM 134 mmol/L (136-145); TOT PROT 6.8 g/dl (6.4-8.2)
[2019-01-25] MEDS: SODIUM CHLORIDE 1,000 ML IV SCH (08:52)
[2019-01-25 09:41] VITALS: BP 145/75; PULSE 90; TEMP 98.1
[2019-01-25] MEDS: HEPARIN NA (PORCINE) 5,000 UNITS/ML 1ML VIAL SQ SCH (09:55)
[2019-01-25] MEDS: LOSARTAN POTASSIUM 50 MG TABLET (FP) PO SCH (09:55)
[2019-01-25] MEDS: MULTIVITAMINS (DAILY MVI) TABLET (FP) PO SCH (09:56)
[2019-01-25] MEDS: predniSONE 20 MG TABLET (UD) PO SCH (09:56)
[2019-01-25] MEDS: FLUTICASONE/SALMETEROL 100 MCG/50 MCG DISKUS IH SCH (09:58)
--- NOTE | 2019-01-25 10:21 | DS ---
Physical Examination Vital Signs: Vital Signs Temperature 98.1 F 01/25/19 09:40 Pulse Rate 90 01/25/19 09:40 Respiratory Rate 18 01/25/19 09:40 Blood Pressure 145/75 01/25/19 09:40 O2 Sat by Pulse Oximetry (%) 100 01/25/19 04:00 Constitutional: Yes: No Distress Eyes: Yes: WNL HENT: Yes: WNL Neck: Yes: WNL Cardiovascular: Yes: WNL Respiratory: Yes: WNL Gastrointestinal: Yes: WNL Renal/: Yes: WNL Musculoskeletal: Yes: WNL Extremities: Yes: WNL Edema: No Peripheral Pulses WNL: Yes Integumentary: Yes: WNL Wound/Incision: Yes: Clean/Dry Neurological: Yes: WNL ...Motor Strength: WNL Psychiatric: Yes: WNL Labs: CBC, BMP 01/25/19 06:15 01/25/19 06:15 Discharge Summary Reason For Visit: HYPONATREMIA Current Active Problems Calcified granuloma of lung (Acute) Cough (Acute) Goiter (Acute) HTN (hypertension) (Acute) HTN (hypertension) (Acute) Hyponatremia (Acute) Procedures: Principal: CT CHEST Hospital Course: ADMITTED FOR BRONCHITIS/COUGH GIVEN IV STEROIDS, IV ABX HYPONATREMIA IMPROVED Condition: Stable - Instructions Diet, Activity, Other Instructions: TAKE SODIUM TABS DAILY FOR 7 DAYS, HAVE LAB CHECK IN 3 DAYS WITH YOUR PMD PREDNISONE TAPER ADVAIR STARTED CAN DC HOME F/U IN 3 DAYS WITH YOUR PRIMARY DOCTOR Disposition: HOME - Home Medications Comprehensive Discharge Medication List: Ambulatory Orders Atorvastatin Ca [Lipitor] 10 mg PO DAILY 02/12/18 Cholecalciferol (Vitamin D3) [Vitamin D3] 1,000 unit PO DAILY 02/12/18 Meloxicam 7.5 mg PO DAILY 02/12/18 Multivitamins [Multivit ([facility] Formulary)] 1 tab PO DAILY 02/12/18 Losartan Potassium [Cozaar -] 25 mg PO DAILY #30 tablet MDD 1 01/24/19 Acetaminophen [Tylenol .Regular Strength -] 325 mg PO Q6H PRN tablet 01/25/19 Guaifenesin Dm [Robitussin Dm -] 10 ml PO Q6H PRN #1 bottle 01/25/19 Meclizine HCl [Antivert -] 12.5 mg PO Q8H PRN #90 tablet 01/25/19 Salmeterol/Fluticasone [Advair 100Mcg/50Mcg -] 1 puff IH BID #1 inhaler Sodium Chloride Tablet - 1 gm PO DAILY #7 tablet 01/25/19 predniSONE [Deltasone -] See Taper PO DAILY #30 tablet 01/25/19
--- NOTE | 2019-01-25 10:30 | PN ---
Progress Note (short form) - Note Progress Note: ID CONSULT DICTATED TRACHEOBRONCHITIS ? VIRAL ? ATYPICAL SUBSTITUTE PO ZITHROMAX OUTPATIENT F/U
--- NOTE | 2019-01-25 11:01 | PN ---
Progress Note (short form) - Note Progress Note: Renal follow up for Hyponatremia Pt seen and examined at the bedside awake and alert continues to have cough no sob, fever, chills, cp, abd pain, N/V/D Vital Signs Temperature 98.1 F 01/25/19 09:40 Pulse Rate 90 01/25/19 09:40 Respiratory Rate 18 01/25/19 09:40 Blood Pressure 145/75 01/25/19 09:40 O2 Sat by Pulse Oximetry (%) 100 01/25/19 04:00 Intake & Output 01/22/19 01/23/19 01/24/19 01/25/19 23:59 23:59 23:59 23:59 Intake Total 0 2750 1330 Output Total 1700 2900 Balance 0 1050 -1570 Weight 70.398 kg 70.307 kg 70.335 kg NAD MMM RRR, no M/R CTA, no rales or wheeze soft NT/ND no LE edema, clubbing or cyanosis CBC, BMP 01/25/19 06:15 01/25/19 06:15 Current Medications Acetaminophen (Tylenol -) 325 mg PO Q6H PRN PRN Reason: PAIN LEVEL 6-10 Atorvastatin Calcium (Lipitor -) 10 mg PO HS [facility]ABI Last Admin: 01/24/19 22:03 Dose: 10 mg Guaifenesin (Robitussin Dm -) 10 ml PO Q6H PRN PRN Reason: COUGH Heparin Sodium (Porcine) (Heparin -) 5,000 unit SQ BID [facility] Last Admin: 01/25/19 09:55 Dose: 5,000 unit Sodium Chloride (Normal Saline -) 1,000 mls @ 75 mls/hr IV ASDIR GABI Last Admin: 01/25/19 08:52 Dose: 75 mls/hr Piperacillin Sod/Tazobactam (Sod 3.375 gm/ Dextrose) 50 mls @ 100 mls/hr IVPB Q8H-IV GABI; Protocol Last Admin: 01/25/19 09:55 Dose: 100 mls/hr Losartan Potassium (Cozaar -) 25 mg PO DAILY [facility] Last Admin: 01/25/19 09:55 Dose: 25 mg Meclizine HCl (Antivert -) 12.5 mg PO Q8H PRN PRN Reason: VERTIGO Multivitamins/Minerals/Vitamin C (Tab-A-Vit -) 1 tab PO DAILY [facility] Last Admin: 01/25/19 09:56 Dose: 1 tab Ondansetron HCl (Zofran Injection) 4 mg IVPUSH Q6H PRN PRN Reason: NAUSEA AND/OR VOMITING Oxycodone HCl (Roxicodone -) 5 mg PO Q6H PRN PRN Reason: PAIN LEVEL 6-10 Prednisone (Deltasone -) 40 mg PO DAILY [facility] Last Admin: 01/25/19 09:56 Dose: 40 mg Fluticasone/Salmeterol (Advair 100mcg/50mcg -) 1 puff IH BID [facility] Last Admin: 01/25/19 09:58 Dose: 1 puff Sodium Chloride (Normal Saline For Inhalation -) 3 ml IH Q6H PRN PRN Reason: COUGH 68 year old woman with Hx of BPPV, Hypertension, HLD, Hyponatremia ( suspected due to HCTZ) who presented with complaints of persistent cough, dizziness and weakness and found to have Na of 127 on admission. #Acute Hypovolemic hyponatremia now improved #Cough/enlarged Chest LN's/granuloma seen on CT chest #Hypertension #HLD can discontinue IVF as serum Na stable oral water intake as per thirst maintain off HCTZ continue losartan in place of ACEi Pulmonary consult appreciated Discharge planning as per primary stable for discharge with outpatient monitoring from renal perspective Thank you Will follow Kimani Charles DO
--- NOTE | 2019-01-25 11:16 | CONS ---
DATE OF CONSULTATION: DATE OF DICTATION: 01/25/2019 HISTORY OF PRESENT ILLNESS: The patient is a 68-year-old female who is evaluated for bronchitis. She reports developing a cough approximately 1 week prior to admission. She described shortness of breath associated with cough which is dry in nature. She also complained of chest congestion. She was prescribed Ceftin as an outpatient which she took for approximately 4 days. Despite the antibiotic therapy she did not improve. She developed nausea from the antibiotic. Patient was admitted to the hospital where a CAT scan of the chest was performed. It showed evidence of atelectasis at the lung bases and a right upper lobe calcified granuloma; however, no evidence of pneumonia. At the present time she continues to cough. Cough is dry in nature. She denies any purulent sputum production or hemoptysis. No complaints of pleuritic chest pain. She denies fever with chills. Patient lives at home alone. She denies any ill contacts. No recent travel. No recent hospitalizations. She did receive influenza vaccine. PAST MEDICAL HISTORY: Positive for hypertension, hyperlipidemia, chronic back pain. ALLERGIES: CODEINE. MEDICATIONS: Lipitor, vitamin D, meloxicam, oxycodone. SYSTEMS REVIEW:Neurologic: No loss of consciousness, seizure activity, focal weakness. Cardiac: Negative chest pain or palpitations. Respiratory: As per HPI. Gastrointestinal: Negative vomiting or diarrhea. Genitourinary: Negative for urinary tract infection. LABORATORY DATA: White blood cell count 6.8, 69 neutrophils, 23 lymphocytes, 7 monocytes, hematocrit 36.1, platelet count 302. BUN 9, creatinine 0.4. Liver enzymes normal. Influenza swab negative. Blood cultures negative. Chest CAT scan as described. PHYSICAL EXAMINATION: General: She is awake and alert, seated in bed in no acute distress. Vital Signs: Temperature 98.1, blood pressure 145/75, pulse 90, regular, respirations 18 per minute. HEENT: Sclerae are anicteric. Cardiac: Heart sounds S1, S2. Lungs: Diminished breath sounds bilaterally. No rhonchi, rales or wheezing. Abdomen: Soft. No tenderness elicited. Extremities: Negative for edema. There is a healed surgical scar present over the left patella. IMPRESSION: 1. Tracheobronchitis, likely viral or atypical bacterial. 2. No clinical or radiographic evidence of pneumonia. RECOMMENDATIONS: May substitute Zithromax p.o. for outpatient therapy. Steroid taper. Case discussed with the primary care doctor. Thank you for the kind referral. MARINA HATFIELD M.D. SERVANDO/[id number]
== END 2019-01-25 12:41 | disposition home or self-care (01) ==
LOC: JER 15:19 → JERBED 18:42 → J5S 20:37
PROVIDERS: ADMIT Family Medicine; ATTEND Family Medicine
PROC: 3E03329 Introduction of Other Anti-infective into Peripheral Vein, Percutaneous Approach (ICD-10-PCS; principal; 2019-01-23)
PROC: 3E033NZ Introduction of Analgesics, Hypnotics, Sedatives into Peripheral Vein, Percutaneous Approach (ICD-10-PCS; 2019-01-23)
PROC: 3E0337Z Introduction of Electrolytic and Water Balance Substance into Peripheral Vein, Percutaneous Approach (ICD-10-PCS; 2019-01-23)
PROC: 3E033GC Introduction of Other Therapeutic Substance into Peripheral Vein, Percutaneous Approach (ICD-10-PCS; 2019-01-23)
PROC: 3E013GC Introduction of Other Therapeutic Substance into Subcutaneous Tissue, Percutaneous Approach (ICD-10-PCS; 2019-01-23)
PROC: 3E0F7GC Introduction of Other Therapeutic Substance into Respiratory Tract, Via Natural or Artificial Opening (ICD-10-PCS; 2019-01-23)
DX: E87.1 Hypo-osmolality and hyponatremia (principal); E86.1 Hypovolemia; J84.10 Pulmonary fibrosis, unspecified; J40 Bronchitis, not specified as acute or chronic; E04.9 Nontoxic goiter, unspecified; R05 Cough; R11.2 Nausea with vomiting, unspecified; I10 Essential (primary) hypertension; E78.5 Hyperlipidemia, unspecified; M54.5 Low back pain; G89.29 Other chronic pain; Z88.5 Allergy status to narcotic agent
CPT/HCPCS: 36415; 71045-TC-FY; 71250-TC; 80048; 80053; 82565; 82803; 83605; 83735; 83930; 83935; 84100; 84300; 84443; 84484; 85025; 85610; 87040; 87804; 93005; 93010; 94640; 96365; 96372; 96375; 99283-25; G0378; J0131; J1644; J7030

== ENCOUNTER 2019-07-31 06:09 | Inpatient (IN) | payer OTHER, MEDICARE ==
[2019-07-30 15:24] VITALS: BMI 26.8
[~2019-07-31 06:09] MED LIST: BACITRACIN 50,000 UNITS VIAL TP ONE; HYDROGEN PEROXIDE 473 ML PO ONE; VANCOMYCIN 1,000 MG VIAL (RESTRICTED TO ID ONLY) IVPB ONE
[2019-07-31 07:17] LABS: BLOOD UREA NITROGEN 14.4 mg/dL (7-18); CALCIUM 9.9 mg/dL (8.5-10.1); CREATININE 0.6 mg/dL (0.55-1.3)
[2019-07-31] MEDS ORDERED: BUPIVACAINE LIPOSOME/PF (EXPAREL) 266 MG/20 ML VIAL ONE (07:35)
[2019-07-31] MEDS ORDERED: GENTAMICIN SO4 80 MG/2 ML VIAL ONE ×2 (07:35→12:20)
[2019-07-31] MEDS ORDERED: LIDOCAINE 1%-EPI 1:100,000 30 ML MDV IJ ONE (07:35)
[2019-07-31] MEDS ORDERED: VANCOMYCIN 1,000 MG VIAL (RESTRICTED TO ID ONLY) ONE (07:35)
[2019-07-31] MEDS ORDERED: THROMBIN (BOVINE) 20,000 UNIT VIAL TP ONE ×2 (07:36→10:23)
[2019-07-31] MEDS ORDERED: SUCCINYLCHOLINE CHLORIDE 200 MG/10 ML SYRINGE ONE (07:36)
[2019-07-31] MEDS ORDERED: PROPOFOL 20 ML ONE ×5 (07:36)
[2019-07-31] MEDS ORDERED: ROCURONIUM BROMIDE 50 MG/5 ML SYRINGE ONE ×2 (07:37→11:19)
[2019-07-31] MEDS ORDERED: DEXMEDETOMIDINE HCL 200 MCG/2 ML IVPB ONE (07:44)
[2019-07-31] MEDS ORDERED: MORPHINE 5 MG/10 ML AMP - FOR COMPOUNDING USE ONLY ONE (07:46)
[2019-07-31] MEDS ORDERED: LIDOCAINE HCL 1%, 10 MG/ML (20ML VIAL) ONE (07:49)
--- NOTE | 2019-07-31 08:14 | HP ---
History & Physical Update - History History: No Change - Physical Physical: No Change - Assessment Assessment: No Change - Plan Plan: No Change (Initital H&P is located in patient's paper chart. No new medications or complaints.)
[2019-07-31] MEDS ORDERED: CEFAZOLIN 1 GM/D5W 1 GM/50 ML BAG IVPB ONE (08:16)
[2019-07-31] MEDS ORDERED: MIDAZOLAM HCL 2 MG/2 ML SINGLE DOSE VIAL ONE ×3 (08:16→14:54)
[2019-07-31] MEDS ORDERED: VANCOMYCIN 1,000 MG VIAL (RESTRICTED TO ID ONLY) IVPB ONE ×3 (08:25→14:00)
[2019-07-31] MEDS ORDERED: BUPIVACAINE HCL/PF 0.25% (2.5MG/ML) 10 ML VIAL ONE (08:25)
[2019-07-31] MEDS ORDERED: ceFAZolin SODIUM 1 GM VIAL IVPB ONE (08:45)
[2019-07-31] MEDS ORDERED: fentaNYL CITRATE 250 MCG/5 ML VIAL ONE (08:49)
[2019-07-31] MEDS ORDERED: LIDOCAINE 1%/EPI 1:100000 (50 ML MULTI DOSE VIAL) INF ONE (09:14)
[2019-07-31] MEDS ORDERED: GELATIN, ABSORBABLE 100 EACH SPONGE TP ONE (09:18)
[2019-07-31] MEDS ORDERED: THROMBIN (BOVINE) 5,000 UNIT VIAL TP ONE ×4 (09:18→10:29)
[2019-07-31] MEDS ORDERED: HYDROGEN PEROXIDE 473 ML PO ONE (10:07)
[2019-07-31] MEDS ORDERED: BACITRACIN 50,000 UNITS VIAL TP ONE ×3 (10:07→14:00)
[2019-07-31] MEDS ORDERED: GENTAMICIN SO4 80 MG/2 ML VIAL IVPB ONE (10:07)
[2019-07-31 11:18] LABS: HEMATOCRIT 33.2 % (32.4-45.2); MCH 32.1 pg (25.7-33.7); MCHC 33.2 g/dl (32.0-36.0); MEAN CELL VOLUME 96.8 fl (80-96); PLATELET COUNT 277 K/MM3 (134-434); RBC 3.43 M/mm3 (3.60-5.2); WHITE BLOOD COUNT 7.1 K/mm3 (4.0-10.0)
[2019-07-31 11:24] LABS: ARTERIAL BLD GAS O2 SATURATION 99.6 % (95-98); ARTERIAL BLOOD GAS PCO2 46.5 mmHg (35-45); ARTERIAL BLOOD GAS pH 7.31 (7.35-7.45)
[2019-07-31 11:30] LABS: ALLENS TEST POSITIVE
[2019-07-31 11:33] LABS: ARTERIAL BLOOD GAS PO2 > 497 mmHg (80-100)
[2019-07-31 13:34] LABS: ARTERIAL BLD GAS O2 SATURATION 99.5 % (95-98); ARTERIAL BLOOD GAS BASE EXCESS -5.8 meq/l (-2-2); ARTERIAL BLOOD GAS PCO2 47.5 mmHg (35-45); ARTERIAL BLOOD GAS pH 7.26 (7.35-7.45)
[2019-07-31 13:46] LABS: HEMATOCRIT 35.4 % (32.4-45.2); HEMOGLOBIN 11.8 GM/dL (10.7-15.3); MCH 31.1 pg (25.7-33.7); MCHC 33.2 g/dl (32.0-36.0); MEAN CELL VOLUME 93.6 fl (80-96); MEAN PLT VOLUME 8.4 fl (7.5-11.1); PLATELET COUNT 259 K/MM3 (134-434); RBC 3.78 M/mm3 (3.60-5.2); WHITE BLOOD COUNT 8.7 K/mm3 (4.0-10.0)
[2019-07-31 14:10] LABS: ALLENS TEST POSITIVE
[2019-07-31 14:11] LABS: ARTERIAL BLOOD GAS PO2 448 mmHg (80-100)
[2019-07-31] MEDS ORDERED: NEOSTIGMINE METHYLSULFATE 0.5 MG/ML - 10 ML MDV ONE (14:18)
[2019-07-31] MEDS ORDERED: diphenhydrAMINE HCL 25 MG CAPSULE (FP) PO PRN (15:00)
[2019-07-31] MEDS ORDERED: ONDANSETRON 4 MG/2 ML VIAL IVPUSH PRN (15:00)
--- NOTE | 2019-07-31 15:14 | OP ---
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
[2019-07-31] MEDS ORDERED: MIDAZOLAM HCL 2 MG/2 ML SINGLE DOSE VIAL IVPUSH PRN ×2 (15:31→19:36)
[2019-07-31] MEDS: PHENYLEPHRINE HCL 20,000 MCG in SODIUM CHLORIDE 248 ML IVPB SCH (15:47)
[2019-07-31] MEDS: LACTATED RINGERS SOLUTION 1,000 ML/1,000 ML INFUS.BAG IV SCH ×2 (15:48→22:34)
--- NOTE | 2019-07-31 16:04 | CONSULT ---
Consultation: REQUESTING PROVIDER: Amos Mcknight CONSULT REQUEST: We have been asked to medically evaluate this patient for post operative medical management. HISTORY OF PRESENT ILLNESS: This is a 68 year old female with PMH significant for HTN, hypothyroidism, and degenerative lumbar scoliosis. She underwent T12-S1 laminectomies, osteotomies with interbody cage x3 via transpedicaular approach, deformity correction and T12-S1 fusion posteriorly for her lumbar scoliosis. Estimated blood loss was 1400cc, she produced 200ml urine, and received 2 units of PRBCs along with 4L of fluids (3RL+1 N/S). She received 80mg min phenylephrine intraoperatively. Post operatively she appears to have developed facial edema. She has been brought to the ICU for post operative medical management and potentially complicated extubation due to her facial edema. REVIEW OF SYSTEMS: CONSTITUTIONAL: Absent: fever, chills, diaphoresis, generalized weakness, malaise, loss of appetite, weight change HEENT: Absent: rhinorrhea, nasal congestion, throat pain, throat swelling, difficulty swallowing, mouth swelling, ear pain, eye pain, visual changes CARDIOVASCULAR: Absent: chest pain, syncope, palpitations, irregular heart rate, lightheadedness , peripheral edema RESPIRATORY: Absent: cough, shortness of breath, dyspnea with exertion, orthopnea, wheezing, stridor, hemoptysis GASTROINTESTINAL: Absent: abdominal pain, abdominal distension, nausea, vomiting, diarrhea, constipation, melena, hematochezia GENITOURINARY: Absent: dysuria, frequency, urgency, hesitancy, hematuria, flank pain, genital pain MUSCULOSKELETAL: Absent: myalgia, arthralgia, joint swelling, back pain, neck pain SKIN: Absent: rash, itching, pallor HEMATOLOGIC/IMMUNOLOGIC: Absent: easy bleeding, easy bruising, lymphadenopathy, frequent infections ENDOCRINE: Absent: unexplained weight gain, unexplained weight loss, heat intolerance, cold intolerance NEUROLOGIC: Absent: headache, focal weakness or paresthesias, dizziness, unsteady gait, seizure, mental status changes, bladder or bowel incontinence PSYCHIATRIC: Absent: anxiety, depression, suicidal or homicidal ideation, hallucinations. PHYSICAL EXAMINATION Vital Signs - 24 hr 07/31/19 07/31/19 07/31/19 07:16 07:24 15:15 Temperature 98.0 F Pulse Rate 97 H Respiratory 20 16 Rate Blood Pressure 150/78 O2 Sat by Pulse 98 Oximetry (%) GENERAL: Patient unconscious HEAD: Edematous facies EARS, NOSE, THROAT: Intubated LUNGS: Clear B/L HEART: RRR NSR ABDOMEN: Soft, non tender, non distended LOWER EXTREMITIES: No edema, well perfused NEUROLOGICAL: Unable to assess SKIN: Warm, dry, normal turgor, no rashes or lesions noted. Laboratory Results - last 24 hr 07/31/19 07/31/19 07/31/19 06:26 06:26 07:30 WBC RBC Hgb Hct MCV MCH MCHC RDW Plt Count MPV Anticoagulation Therapy Puncture Site ABG pH ABG pCO2 at Pt Temp ABG pO2 at Pt Temp ABG HCO3 ABG O2 Sat (Measured) ABG O2 Content ABG Base Excess Jared Test O2 Delivery Device Oxygen Flow Rate Vent Mode Vent Rate Mechanical Rate PEEP Pressure Support Vent Sodium 137 Potassium 4.0 Chloride 102 Carbon Dioxide 28 Anion Gap 7 L BUN 14.4 Creatinine 0.6 Est GFR (CKD-EPI)AfAm 107.03 Est GFR (CKD-EPI)NonAf 92.35 Random Glucose 99 Lactic Acid Calcium 9.9 Blood Type O POSITIVE O POSITIVE Antibody Screen Negative Crossmatch See Detail 07/31/19 07/31/19 07/31/19 11:00 11:09 13:00 WBC 7.1 RBC 3.43 L Hgb 11.0 Hct 33.2 MCV 96.8 H MCH 32.1 MCHC 33.2 RDW 14.0 D Plt Count 277 MPV 8.0 Anticoagulation Therapy No Result Required. No Result Required. Puncture Site Right radial Right radial ABG pH 7.31 L 7.26 L ABG pCO2 at Pt Temp 46.5 H 47.5 H ABG pO2 at Pt Temp > 497 H 448 H ABG HCO3 22.7 20.7 L ABG O2 Sat (Measured) 99.6 H 99.5 H ABG O2 Content No Result Required. No Result Required. ABG Base Excess -3.0 L -5.8 L Jared Test Positive Positive O2 Delivery Device Mech vent Vent Oxygen Flow Rate 100% 100% Vent Mode A/c A/c Vent Rate 8 10 Mechanical Rate Mech vent Yes PEEP 0.0 0.0 Pressure Support Vent 400 400 Sodium Potassium Chloride Carbon Dioxide Anion Gap BUN Creatinine Est GFR (CKD-EPI)AfAm Est GFR (CKD-EPI)NonAf Random Glucose Lactic Acid Calcium Blood Type Antibody Screen Crossmatch 07/31/19 07/31/19 13:00 13:00 WBC 8.7 RBC 3.78 Hgb 11.8 Hct 35.4 MCV 93.6 MCH 31.1 MCHC 33.2 RDW 15.0 Plt Count 259 MPV 8.4 Anticoagulation Therapy Puncture Site ABG pH ABG pCO2 at Pt Temp ABG pO2 at Pt Temp ABG HCO3 ABG O2 Sat (Measured) ABG O2 Content ABG Base Excess Jared Test O2 Delivery Device Oxygen Flow Rate Vent Mode Vent Rate Mechanical Rate PEEP Pressure Support Vent Sodium Potassium Chloride Carbon Dioxide Anion Gap BUN Creatinine Est GFR (CKD-EPI)AfAm Est GFR (CKD-EPI)NonAf Random Glucose Lactic Acid 1.2 Calcium Blood Type Antibody Screen Crossmatch Active Medications Generic Name Dose Route Start Last Admin Trade Name Freq PRN Reason Stop Dose Admin Atorvastatin Calcium 10 mg 08/01/19 10:00 Lipitor - PO DAILY [facility] Cholecalciferol 1,000 unit 08/01/19 10:00 Vitamin D3 - PO DAILY [facility] Diphenhydramine HCl 25 mg 07/31/19 15:00 Benadryl - PO Q6H PRN FOR ITCHING Docusate Sodium 100 mg 07/31/19 22:00 Colace - PO TID [facility] Ferrous Sulfate 325 mg 08/01/19 10:00 Feosol - PO DAILY [facility] Folic Acid 1 mg 08/01/19 10:00 Folic Acid - PO DAILY [facility] Heparin Sodium (Porcine) 5,000 unit 07/31/19 22:00 Heparin - SQ Q8H [facility] Cefazolin Sodium 1 gm/ 50 mls @ 100 mls/hr 07/31/19 18:00 Dextrose IVPB 08/01/19 17:59 Q8H-IV GABI Lactated Ringer's 1,000 ml in 1,000 mls @ 125 mls/hr 07/31/19 15:00 Lactated Ringers Solution IV ASDIR [facility] Loratadine 10 mg 08/01/19 10:00 Claritin - PO DAILY [facility] Losartan Potassium 25 mg 08/01/19 10:00 Cozaar - PO DAILY [facility] Multivitamins/Minerals/Vitamin C 1 tab 08/01/19 10:00 Tab-A-Vit - PO DAILY [facility] Non-Formulary Medication 7.5 mg 08/01/19 10:00 Meloxicam [Meloxicam] PO DAILY [facility] Ondansetron HCl 4 mg 07/31/19 15:00 Zofran Injection IVPUSH Q6H PRN NAUSEA Valacyclovir HCl 500 mg 08/01/19 10:00 Valtrex - PO DAILY [facility] ASSESSMENT/PLAN: This is a 68 year old female with PMH significant for HTN, hypothyroidism, and degenerative lumbar scoliosis. She is POD#0 for T12-S1 laminectomies and fusion posteriorly for her lumbar scoliosis. 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 Thank you for this consultative opportunity. Visit type - Emergency Visit Emergency Visit: Yes ED Registration Date: 07/31/19 Care time: The patient presented to the Emergency Department on the above date and was hospitalized for further evaluation of their emergent condition. - New Patient This patient is new to me today: Yes Date on this admission: 08/01/19 - Critical Care Critical Care patient: Yes Total Critical Care Time (in minutes): 41 Critical Care Statement: The care of this patient involved high complexity decision making to prevent further life threatening deterioration of the patient 's condition and/or to evaluate & treat vital organ system(s) failure or risk of failure. ATTENDING PHYSICIAN STATEMENT I saw and evaluated the patient. I reviewed the resident's note and discussed the case with the resident. I agree with the resident's findings and plan as documented. SUBJECTIVE: OBJECTIVE: ASSESSMENT AND PLAN:
--- NOTE | 2019-07-31 16:37 | CONSULT ---
Consult Consult Specialty:: medicine - History of Present Illness Chief Complaint: post op hypotension History of Present Illness: s/p T12-S1 laminectomies, osteotomies with interbody cage x3 via transpedicaular approach, deformity correction and T12-S1 fusion posteriorly hypotensive and now in icu intubated and vented A line in place on phenylephrine - Past Medical History Cardio/Vascular: Yes: HTN, Hyperlipdemia. No: AFIB - Alcohol/Substance Use Hx Alcohol Use: Yes (1/daily) - Smoking History Smoking history: Never smoked Have you smoked in the past 12 months: No - Social History ADL: Independent History of Recent Travel: No Home Medications - Allergies Allergies/Adverse Reactions: Allergies Allergy/AdvReac Type Severity Reaction Status Date / Time codeine AdvReac Severe Vomiting Verified 07/31/19 07:27 - Home Medications Home Medications: Ambulatory Orders Atorvastatin Ca [Lipitor] 10 mg PO DAILY 02/12/18 Meloxicam 7.5 mg PO DAILY 02/12/18 Multivitamins [Multivit ([facility] Formulary)] 1 tab PO DAILY 02/12/18 Losartan Potassium [Cozaar -] 25 mg PO DAILY #30 tablet MDD 1 01/24/19 Cetirizine HCl 10 mg PO DAILY 07/30/19 Cholecalciferol (Vitamin D3) [Vitamin D3 -] 1,000 unit PO DAILY 07/30/19 Valacyclovir HCl [Valtrex] 500 mg PO DAILY 07/30/19 Review of Systems Unable to obtain ROS, reason: intubated Physical Exam Vital Signs: Vital Signs Temperature 97.2 F L 07/31/19 15:30 Pulse Rate 81 07/31/19 15:47 Respiratory Rate 12 07/31/19 15:30 Blood Pressure 71/53 L 07/31/19 15:47 O2 Sat by Pulse Oximetry (%) 100 07/31/19 15:30 Constitutional: Yes: Calm Neck: Yes: Other (intubated) Cardiovascular: Yes: Regular Rate and Rhythm, S1, S2 Respiratory: Yes: CTA Bilaterally Gastrointestinal: Yes: Normal Bowel Sounds, Soft Labs: CBC, BMP 07/31/19 13:00 07/31/19 06:26 Problem List - Problems (1) S/P laminectomy with spinal fusion Assessment/Plan: pot op hypotension icu monitoring pressor keep MAP> 55 npo hold all BP medications dvt ppx intubated and sedated npo for now Code(s): Z98.1 - ARTHRODESIS STATUS
[2019-07-31] MEDS ORDERED: DEXTROSE 5%-WATER - 50 ML IVPB ONE (18:20)
[2019-07-31] MEDS ORDERED: ceFAZolin SODIUM 1 GM VIAL ONE (18:20)
[2019-07-31] MEDS: CEFAZOLIN 1 GM in DEXTROSE 5%-WATER - 50 ML IVPB SCH (18:23)
[2019-07-31] MEDS ORDERED: MIDAZOLAM 100 MG in SODIUM CHLORIDE 100 ML IVPB SCH (20:00)
[2019-07-31] MEDS ORDERED: MIDAZOLAM IN 0.9 % SOD.CHLORID 1 MG/1 ML PLAST..BAG ONE (20:07)
[2019-07-31] MEDS: DOCUSATE SODIUM 100 MG CAPSULE (FP) PO SCH (22:32)
[2019-07-31] MEDS: HEPARIN NA (PORCINE) 5,000 UNITS/ML 1ML VIAL SQ SCH (22:33)
[2019-08-01] MEDS ORDERED: DEXTROSE 5%-WATER - 50 ML IVPB ONE ×2 (01:27→08:12)
[2019-08-01] MEDS ORDERED: ceFAZolin SODIUM 1 GM VIAL ONE ×2 (01:27→08:12)
[2019-08-01] MEDS: CEFAZOLIN 1 GM in DEXTROSE 5%-WATER - 50 ML IVPB SCH ×2 (01:48→09:23)
[2019-08-01] MEDS: PHENYLEPHRINE HCL 20,000 MCG in SODIUM CHLORIDE 248 ML IVPB SCH ×2 (01:49→21:57)
[2019-08-01 06:20] LABS: HEMATOCRIT 32.6 % (32.4-45.2); HEMOGLOBIN 11.3 GM/dL (10.7-15.3); MCH 31.7 pg (25.7-33.7); MCHC 34.6 g/dl (32.0-36.0); MEAN CELL VOLUME 91.6 fl (80-96); MEAN PLT VOLUME 8.5 fl (7.5-11.1); PLATELET COUNT 219 K/MM3 (134-434); RBC 3.56 M/mm3 (3.60-5.2); RDW 15.2 % (11.6-15.6); WHITE BLOOD COUNT 13.9 K/mm3 (4.0-10.0)
[2019-08-01] MEDS: HEPARIN NA (PORCINE) 5,000 UNITS/ML 1ML VIAL SQ SCH ×3 (06:57→22:52)
[2019-08-01] MEDS: DOCUSATE SODIUM 100 MG CAPSULE (FP) PO SCH ×3 (06:57→22:52)
[2019-08-01 07:16] LABS: ARTERIAL BLD GAS O2 SATURATION 99.3 % (95-98); ARTERIAL BLOOD GAS PCO2 39.2 mmHg (35-45); ARTERIAL BLOOD GAS PO2 178 mmHg (80-100); ARTERIAL BLOOD GAS pH 7.36 (7.35-7.45)
--- NOTE | 2019-08-01 07:40 | PN ---
Progress Note (short form) - Note Progress Note: Surgery POD#1 T12-S1 laminectomies, osteotomies with interbody cage x3 via transpedicaular approach, deformity correction and T12-S1 fusion posteriorly, patient seen and examined at bedside. Patient was kept intubated and sedated overnight with ICU monitoring for airway protection (edema after 4L crystalloid and 3U PRBC, prone positioning), hypotension requiring phenylephrine vasopressor support. She was extubated this morning with no issues. She states he pain is controlled and she denies any CP, SOB,Fever, Chills, N/V. She is tolerating ice chips and denies any radicular pain in b/l LE. Vital Signs Temp 97.6 F 08/01/19 06:00 Pulse 75 08/01/19 08:06 Resp 16 08/01/19 09:00 BP 131/75 08/01/19 06:58 Pulse Ox 99 08/01/19 09:00 Intake & Output 07/31/19 07/31/19 08/01/19 11:59 23:59 11:59 Intake Total 3350 2940 1150 Output Total 1600 500 380 Balance 1750 2440 770 Intake: IV 3000 2190 1100 LACTATED RINGERS SOLUTION 750 840 1,000 ml In 1,000 ml @ 125 mls/hr IV ASDIR GABI Rx#:[id number] Mata-Synephrine - 20,000 440 260 Mcg In Normal Saline - 248 ml @ 80 MCG/MIN 60 mls/hr IVPB ASDIR GABI Rx# :[id number] IVPB 50 50 Blood Product 350 700 Output: Drainage 100 80 Back 100 80 Urine 200 400 300 Camarena 400 300 Estimated Blood Loss 1400 Other: Voiding Method Indwelling Catheter Indwelling Catheter CBC, BMP 08/01/19 05:20 08/01/19 05:20 PE: A&Ox3, NAD Unlabored resp on RA Lumbar spine, dressing c/d/i with surrounding tissue intact and no erythema or edema. Drain secure at right lumbar paravertebral area shaheed bloody drainage. B/L LE 5/5 on dorsi/plantar flexion. LE compartments soft, supple and non- tender with +DP pulses. Problem List - Problems (1) S/P laminectomy with spinal fusion Assessment/Plan: POD #1 multilevel lumbar lami and fusion, extubated and doing well. -step down to floor -continue DVT prophylaxis -OOB with TLSO and PT -Regular diet -d/c camarena once OOB -Continue IV abx while MONTSERRAT in place. Evaluation and plan discussed with Dr Bob Code(s): Z98.1 - ARTHRODESIS STATUS
--- NOTE | 2019-08-01 07:48 | PN ---
Progress Note (short form) - Note Progress Note: 68F s/p T12-S2 instrumented fusion under GA and Duramorph spinal. Kept intubated and sedated overnight with ICU monitoring for airway protection ( edema after 4L crystalloid and 3U PRBC, prone positioning), hypotension requiring phenylephrine vasopressor support. No c/o this AM. Intubated but awake and following commands. ICU service conducting sedation wean and trial of CPAP/PS. Diuresing. Vital Signs Temperature 97.6 F 08/01/19 06:00 Pulse Rate 70 08/01/19 06:58 Respiratory Rate 18 08/01/19 06:00 Blood Pressure 131/75 08/01/19 06:58 O2 Sat by Pulse Oximetry (%) 100 07/31/19 21:00 Intake & Output 07/29/19 07/30/19 07/31/19 08/01/19 23:59 23:59 23:59 23:59 Intake Total 6290 1150 Output Total 2100 380 Balance 4190 770 Weight 142 lb Anticipate extubation shortly. - Care as per ICU - No anesthesia complications - Call with questions
[2019-08-01 08:01] LABS: BLOOD UREA NITROGEN 10.7 mg/dL (7-18); CREATININE 0.2 mg/dL (0.55-1.3); POTASSIUM 4.4 mmol/L (3.5-5.1)
[2019-08-01 08:42] LABS: CALCIUM 5.9 mg/dL (8.5-10.1)
[2019-08-01] MEDS ORDERED: PROMETHAZINE HCL 25 MG/1 ML VIAL IVPB PRN (08:45)
[2019-08-01] MEDS ORDERED: ONDANSETRON 4 MG/2 ML VIAL IVPUSH PRN (08:45)
[2019-08-01] MEDS ORDERED: DEXAMETHASONE SOD PHOSPHATE 4 MG/1 ML VIAL IVPUSH PRN (08:45)
[2019-08-01 09:14] LABS: ALBUMIN 1.7 g/dl (3.4-5.0)
--- NOTE | 2019-08-01 09:26 | PN ---
Progress Note (short form) - Note Progress Note: Patient stable,extubated now and is c/o some pain so Dilaudid TOP CLEANER started.Will f /u tomorrow.
[2019-08-01] MEDS ORDERED: PT OWN MED DRAWER 7, Y5N ONE (09:33)
[2019-08-01] MEDS ORDERED: LORATADINE 10 MG TABLET PO SCH (10:00)
[2019-08-01] MEDS ORDERED: LOSARTAN POTASSIUM 25 MG TABLET PO SCH (10:00)
--- NOTE | 2019-08-01 10:08 | PN ---
Progress Note, Physician Chief Complaint: Post-Op Hypotension T12-S1 Laminectomy History of Present Illness: Previous notes and events reviewed patient extubated this morning awake and alert NAD no acute events overnight BP improving complain of aching back pain - Current Medication List Current Medications: Active Medications Atorvastatin Calcium (Lipitor -) 10 mg PO DAILY [facility] Cholecalciferol (Vitamin D3 -) 1,000 unit PO DAILY [facility] Dexamethasone Sodium Phosphate (Decadron Injection -) 4 mg IVPUSH ONCE PRN PRN Reason: NAUSEA AND/OR VOMITING Diphenhydramine HCl (Benadryl -) 25 mg PO Q6H PRN PRN Reason: FOR ITCHING Diphenhydramine HCl (Benadryl Injection -) 12.5 mg IVPUSH ONCE PRN PRN Reason: FOR ITCHING Docusate Sodium (Colace -) 100 mg PO TID [facility] Last Admin: 08/01/19 06:57 Dose: Not Given Ferrous Sulfate (Feosol -) 325 mg PO DAILY [facility] Folic Acid (Folic Acid -) 1 mg PO DAILY [facility] Heparin Sodium (Porcine) (Heparin -) 5,000 unit SQ Q8H [facility] Last Admin: 08/01/19 06:57 Dose: 5,000 unit Hydromorphone HCl (Hydromorphone 10 Mg/50 Ml-Ns) 10 mg VENEER SAWYER VENEER SAWYER [facility]; Protocol Stop: 08/08/19 08:46 Cefazolin Sodium 1 gm/ (Dextrose) 50 mls @ 100 mls/hr IVPB Q8H-IV GABI Stop: 08/01/19 17:59 Last Admin: 08/01/19 09:23 Dose: 100 mls/hr Lactated Ringer's (Lactated Ringers Solution) 1,000 ml in 1,000 mls @ 125 mls/ hr IV ASDIR GABI Last Admin: 07/31/19 22:34 Dose: 125 mls/hr Phenylephrine HCl 20,000 mcg/ (Sodium Chloride) 250 mls @ 60 mls/hr IVPB ASDIR [facility]; Protocol Last Titration: 08/01/19 08:30 Dose: 0 mcg/min, 0 mls/hr Midazolam HCl 100 mg/ Sodium (Chloride) 100 mls @ 1 mls/hr IVPB TITR [facility]; Protocol Stop: 08/01/19 19:59 Last Admin: 07/31/19 20:13 Dose: 1 mg/hr, 1 mls/hr Multivitamins/Minerals/Vitamin C (Tab-A-Vit -) 1 tab PO DAILY [facility] Non-Formulary Medication (Meloxicam [Meloxicam]) 7.5 mg PO DAILY [facility] Ondansetron HCl (Zofran Injection) 4 mg IVPUSH Q6H PRN PRN Reason: NAUSEA Ondansetron HCl (Zofran Injection) 4 mg IVPUSH Q4H PRN PRN Reason: NAUSEA AND/OR VOMITING Promethazine HCl (Phenergan Injection -) 12.5 mg IVPB Q6H PRN PRN Reason: NAUSEA AND/OR VOMITING Valacyclovir HCl (Valtrex -) 500 mg PO DAILY [facility] - Objective Vital Signs: Vital Signs Temperature 97.6 F 08/01/19 06:00 Pulse Rate 75 08/01/19 08:06 Respiratory Rate 16 08/01/19 09:00 Blood Pressure 131/75 08/01/19 06:58 O2 Sat by Pulse Oximetry (%) 99 08/01/19 09:00 Constitutional: Yes: No Distress, Calm Eyes: Yes: Conjunctiva Clear HENT: Yes: Atraumatic Cardiovascular: Yes: Regular Rate and Rhythm Respiratory: Yes: Regular, CTA Bilaterally, On Nasal O2 Gastrointestinal: Yes: Normal Bowel Sounds, Soft Genitourinary: Yes: Christensen Present Musculoskeletal: Yes: WNL Extremities: Yes: WNL Edema: Yes (mild b/l hands) Neurological: Yes: Alert, Oriented Psychiatric: Yes: Alert, Oriented Labs: CBC, BMP 08/01/19 05:20 08/01/19 05:20 Problem List - Problems (1) Hypotension Assessment/Plan: -IV Phenylepherine -maintain MAP >65 -hold BP meds Code(s): I95.9 - HYPOTENSION, UNSPECIFIED (2) S/P laminectomy with spinal fusion Assessment/Plan: -Neurosurgery on board -Incentive Spirometer -pain control -dvt ppx -pending official read of L-spine CT scan Code(s): Z98.1 - ARTHRODESIS STATUS Assessment/Plan see problem list dvt ppx
[2019-08-01] MEDS ORDERED: CALCIUM GLUCONATE 10% - 1,000 MG/10 ML VIAL IVPB ONE (10:09)
--- NOTE | 2019-08-01 10:41 | PN ---
Teaching Attending Note Name of Resident: Ren Jose ATTENDING PHYSICIAN STATEMENT I saw and evaluated the patient. I reviewed the resident's note and discussed the case with the resident. I agree with the resident's findings and plan as documented. SUBJECTIVE: Patient seen and examined in the ICU. Extubated. Awake and alert. Breathing feels ok. Some post-op discomfort. Intake & Output 07/29/19 07/30/19 07/31/19 08/01/19 23:59 23:59 23:59 23:59 Intake Total 6290 1150 Output Total 2100 380 Balance 4190 770 Weight 142 lb Last Vital Signs Temp Pulse Resp BP Pulse Ox 97.6 F 75 16 131/75 99 08/01/19 06:00 08/01/19 08:06 08/01/19 09:00 08/01/19 06:58 08/01/19 09:00 Active Medications Atorvastatin Calcium (Lipitor -) 10 mg PO DAILY [facility] Calcium Gluconate (Calcium Gluconate 10% -) 1,000 mg IVPB ONCE ONE Stop: 08/01/19 10:10 Cholecalciferol (Vitamin D3 -) 1,000 unit PO DAILY [facility] Dexamethasone Sodium Phosphate (Decadron Injection -) 4 mg IVPUSH ONCE PRN PRN Reason: NAUSEA AND/OR VOMITING Diphenhydramine HCl (Benadryl -) 25 mg PO Q6H PRN PRN Reason: FOR ITCHING Diphenhydramine HCl (Benadryl Injection -) 12.5 mg IVPUSH ONCE PRN PRN Reason: FOR ITCHING Docusate Sodium (Colace -) 100 mg PO TID [facility] Last Admin: 08/01/19 06:57 Dose: Not Given Ferrous Sulfate (Feosol -) 325 mg PO DAILY [facility] Folic Acid (Folic Acid -) 1 mg PO DAILY [facility] Heparin Sodium (Porcine) (Heparin -) 5,000 unit SQ Q8H [facility] Last Admin: 08/01/19 06:57 Dose: 5,000 unit Hydromorphone HCl (Hydromorphone 10 Mg/50 Ml-Ns) 10 mg HAND STONER HAND STONER [facility]; Protocol Stop: 08/08/19 08:46 Cefazolin Sodium 1 gm/ (Dextrose) 50 mls @ 100 mls/hr IVPB Q8H-IV GABI Stop: 08/01/19 17:59 Last Admin: 08/01/19 09:23 Dose: 100 mls/hr Lactated Ringer's (Lactated Ringers Solution) 1,000 ml in 1,000 mls @ 125 mls/ hr IV ASDIR GABI Last Admin: 07/31/19 22:34 Dose: 125 mls/hr Phenylephrine HCl 20,000 mcg/ (Sodium Chloride) 250 mls @ 60 mls/hr IVPB ASDIR [facility]I; Protocol Last Titration: 08/01/19 08:30 Dose: 0 mcg/min, 0 mls/hr Multivitamins/Minerals/Vitamin C (Tab-A-Vit -) 1 tab PO DAILY [facility] Non-Formulary Medication (Meloxicam [Meloxicam]) 7.5 mg PO DAILY [facility] Ondansetron HCl (Zofran Injection) 4 mg IVPUSH Q6H PRN PRN Reason: NAUSEA Ondansetron HCl (Zofran Injection) 4 mg IVPUSH Q4H PRN PRN Reason: NAUSEA AND/OR VOMITING Promethazine HCl (Phenergan Injection -) 12.5 mg IVPB Q6H PRN PRN Reason: NAUSEA AND/OR VOMITING Valacyclovir HCl (Valtrex -) 500 mg PO DAILY [facility] GENERAL: Awake and alert, NAD HEAD: NC/AT EARS, NOSE, THROAT: (-) Pallor, (-) Icterus LUNGS: Clear HEART: RRR NSR ABDOMEN: Soft, non tender, non distended LOWER EXTREMITIES: No edema, well perfused NEUROLOGICAL: Awake and alert, non-focal SKIN: Warm, dry, normal turgor, no rashes or lesions noted. Laboratory Results - last 24 hr 07/31/19 07/31/19 07/31/19 06:26 11:00 11:09 WBC 7.1 RBC 3.43 L Hgb 11.0 Hct 33.2 MCV 96.8 H MCH 32.1 MCHC 33.2 RDW 14.0 D Plt Count 277 MPV 8.0 Anticoagulation Therapy No Result Required. Puncture Site Right radial ABG pH 7.31 L ABG pCO2 at Pt Temp 46.5 H ABG pO2 at Pt Temp > 497 H ABG HCO3 22.7 ABG O2 Sat (Measured) 99.6 H ABG O2 Content No Result Required. ABG Base Excess -3.0 L Jared Test Positive O2 Delivery Device Mech vent Oxygen Flow Rate 100% Vent Mode A/c Vent Rate 8 Mechanical Rate Mech vent PEEP 0.0 Pressure Support Vent 400 Sodium Potassium Chloride Carbon Dioxide Anion Gap BUN Creatinine Est GFR (CKD-EPI)AfAm Est GFR (CKD-EPI)NonAf Random Glucose Lactic Acid Calcium Albumin Blood Type O POSITIVE Antibody Screen Negative Crossmatch See Detail 07/31/19 07/31/19 07/31/19 13:00 13:00 13:00 WBC 8.7 RBC 3.78 Hgb 11.8 Hct 35.4 MCV 93.6 MCH 31.1 MCHC 33.2 RDW 15.0 Plt Count 259 MPV 8.4 Anticoagulation Therapy No Result Required. Puncture Site Right radial ABG pH 7.26 L ABG pCO2 at Pt Temp 47.5 H ABG pO2 at Pt Temp 448 H ABG HCO3 20.7 L ABG O2 Sat (Measured) 99.5 H ABG O2 Content No Result Required. ABG Base Excess -5.8 L Jared Test Positive O2 Delivery Device Vent Oxygen Flow Rate 100% Vent Mode A/c Vent Rate 10 Mechanical Rate Yes PEEP 0.0 Pressure Support Vent 400 Sodium Potassium Chloride Carbon Dioxide Anion Gap BUN Creatinine Est GFR (CKD-EPI)AfAm Est GFR (CKD-EPI)NonAf Random Glucose Lactic Acid 1.2 Calcium Albumin Blood Type Antibody Screen Crossmatch 08/01/19 08/01/19 08/01/19 05:20 05:20 06:45 WBC 13.9 H RBC 3.56 L Hgb 11.3 Hct 32.6 MCV 91.6 MCH 31.7 MCHC 34.6 RDW 15.2 Plt Count 219 MPV 8.5 Anticoagulation Therapy No Result Required. Puncture Site Arterial line ABG pH 7.36 ABG pCO2 at Pt Temp 39.2 ABG pO2 at Pt Temp 178 H ABG HCO3 21.6 L ABG O2 Sat (Measured) 99.3 H ABG O2 Content 16.1 ABG Base Excess -3.0 L Jared Test No Result Required. O2 Delivery Device Mech vent Oxygen Flow Rate 50% Vent Mode A/c Vent Rate 12 Mechanical Rate Yes PEEP 5.0 Pressure Support Vent 400 Sodium 141 Potassium 4.4 Chloride 107 Carbon Dioxide 20 L Anion Gap 15 BUN 10.7 Creatinine 0.2 L Est GFR (CKD-EPI)AfAm 153.64 Est GFR (CKD-EPI)NonAf 132.56 Random Glucose 92 Lactic Acid Calcium 5.9 L* Albumin 1.7 L Blood Type Antibody Screen Crossmatch ASSESSMENT/PLAN: POD #1: T12-S1 laminectomies, osteotomies with interbody cage x 3 via transpedicaular approach, deformity correction and T12-S1 fusion posteriorly HTN Hypothyroidism Degenerative lumbar scoliosis Pain control O2 as needed Incentive Spirometry VTE prophylaxis PT / OOB / mobility per Surgery Floor when cleared by surgery Dr Rawls
[2019-08-01] MEDS: HYDROmorphone *PCA* 10MG/50ML DISP.SYRIN PCA SCH (10:56)
[2019-08-01] MEDS: valACYclovir HCL 500 MG TABLET (FP) PO SCH (11:00)
[2019-08-01] MEDS: FOLIC ACID 1 MG TABLET (FP) PO SCH (11:00)
[2019-08-01] MEDS: FERROUS SO4 325 MG TABLET (FP) PO SCH (11:01)
[2019-08-01] MEDS: ATORVASTATIN CA 10 MG TABLET (FP) PO SCH (11:01)
[2019-08-01] MEDS: MULTIVITAMINS (DAILY MVI) TABLET (FP) PO SCH (11:01)
[2019-08-01] MEDS: CHOLECALCIFEROL (VIT D3) 1,000 UNIT (25 MCG) TABLET PO SCH (11:02)
--- NOTE | 2019-08-01 11:10 | PN ---
Physical Exam: SUBJECTIVE: Patient seen and examined. No acute issues overnight. Extubated after CPAP trial this AM without complications. Facial edema reduced, denies dyspnea. OBJECTIVE: Vital Signs Period Temp Pulse Resp BP Sys/[place] Pulse Ox Last 24 Hr 97.2 F-98.2 F 65-87 12-18 71-136/18-100 99-100 GENERAL: The patient is awake, A&Ox3, in no acute distress. HEENT: minimal facial edema LUNGS: Breath sounds equal, clear to auscultation bilaterally, no wheezes, no crackles, no accessory muscle use. HEART: Regular rate and rhythm, S1, S2 without murmur, rub or gallop. ABDOMEN: Soft, nontender, nondistended, normoactive bowel sounds, no guarding, no rebound, no hepatosplenomegaly, no masses. BACK: Drain from right lumbar paravertebral area w shaheed bloody drainage NEUROLOGICAL: A&Ox3, normal speech Laboratory Results - last 24 hr 07/31/19 07/31/19 07/31/19 06:26 11:00 11:09 WBC 7.1 RBC 3.43 L Hgb 11.0 Hct 33.2 MCV 96.8 H MCH 32.1 MCHC 33.2 RDW 14.0 D Plt Count 277 MPV 8.0 Anticoagulation Therapy No Result Required. Puncture Site Right radial ABG pH 7.31 L ABG pCO2 at Pt Temp 46.5 H ABG pO2 at Pt Temp > 497 H ABG HCO3 22.7 ABG O2 Sat (Measured) 99.6 H ABG O2 Content No Result Required. ABG Base Excess -3.0 L Jared Test Positive O2 Delivery Device Mec vent Oxygen Flow Rate 100% Vent Mode A/c Vent Rate 8 Mechanical Rate Mech vent PEEP 0.0 Pressure Support Vent 400 Sodium Potassium Chloride Carbon Dioxide Anion Gap BUN Creatinine Est GFR (CKD-EPI)AfAm Est GFR (CKD-EPI)NonAf Random Glucose Lactic Acid Calcium Albumin Blood Type O POSITIVE Antibody Screen Negative Crossmatch See Detail 07/31/19 07/31/19 07/31/19 13:00 13:00 13:00 WBC 8.7 RBC 3.78 Hgb 11.8 Hct 35.4 MCV 93.6 MCH 31.1 MCHC 33.2 RDW 15.0 Plt Count 259 MPV 8.4 Anticoagulation Therapy No Result Required. Puncture Site Right radial ABG pH 7.26 L ABG pCO2 at Pt Temp 47.5 H ABG pO2 at Pt Temp 448 H ABG HCO3 20.7 L ABG O2 Sat (Measured) 99.5 H ABG O2 Content No Result Required. ABG Base Excess -5.8 L Jared Test Positive O2 Delivery Device Vent Oxygen Flow Rate 100% Vent Mode A/c Vent Rate 10 Mechanical Rate Yes PEEP 0.0 Pressure Support Vent 400 Sodium Potassium Chloride Carbon Dioxide Anion Gap BUN Creatinine Est GFR (CKD-EPI)AfAm Est GFR (CKD-EPI)NonAf Random Glucose Lactic Acid 1.2 Calcium Albumin Blood Type Antibody Screen Crossmatch 08/01/19 08/01/19 08/01/19 05:20 05:20 06:45 WBC 13.9 H RBC 3.56 L Hgb 11.3 Hct 32.6 MCV 91.6 MCH 31.7 MCHC 34.6 RDW 15.2 Plt Count 219 MPV 8.5 Anticoagulation Therapy No Result Required. Puncture Site Arterial line ABG pH 7.36 ABG pCO2 at Pt Temp 39.2 ABG pO2 at Pt Temp 178 H ABG HCO3 21.6 L ABG O2 Sat (Measured) 99.3 H ABG O2 Content 16.1 ABG Base Excess -3.0 L Jared Test No Result Required. O2 Delivery Device Mech vent Oxygen Flow Rate 50% Vent Mode A/c Vent Rate 12 Mechanical Rate Yes PEEP 5.0 Pressure Support Vent 400 Sodium 141 Potassium 4.4 Chloride 107 Carbon Dioxide 20 L Anion Gap 15 BUN 10.7 Creatinine 0.2 L Est GFR (CKD-EPI)AfAm 153.64 Est GFR (CKD-EPI)NonAf 132.56 Random Glucose 92 Lactic Acid Calcium 5.9 L* Albumin 1.7 L Blood Type Antibody Screen Crossmatch Active Medications Generic Name Dose Route Start Last Admin Trade Name Freq PRN Reason Stop Dose Admin Atorvastatin Calcium 10 mg 08/01/19 10:00 08/01/19 11:01 Lipitor - PO 10 mg DAILY [facility] Administration Calcium Gluconate 1,000 mg 08/01/19 10:09 08/01/19 11:04 Calcium Gluconate 10% - IVPB 08/01/19 10:10 1,000 mg ONCE ONE Administration Cholecalciferol 1,000 unit 08/01/19 10:00 08/01/19 11:02 Vitamin D3 - PO 1,000 unit DAILY [facility] Administration Dexamethasone Sodium Phosphate 4 mg 08/01/19 08:45 Decadron Injection - IVPUSH ONCE PRN NAUSEA AND/OR VOMITING Diphenhydramine HCl 25 mg 07/31/19 15:00 Benadryl - PO Q6H PRN FOR ITCHING Diphenhydramine HCl 12.5 mg 08/01/19 08:45 Benadryl Injection - IVPUSH ONCE PRN FOR ITCHING Docusate Sodium 100 mg 07/31/19 22:00 08/01/19 06:57 Colace - PO Not Given TID GABI Ferrous Sulfate 325 mg 08/01/19 10:00 08/01/19 11:01 Feosol - PO 325 mg DAILY [facility] Administration Folic Acid 1 mg 08/01/19 10:00 08/01/19 11:00 Folic Acid - PO 1 mg DAILY [facility] Administration Heparin Sodium (Porcine) 5,000 unit 07/31/19 22:00 08/01/19 06:57 Heparin - SQ 5,000 unit Q8H [facility]I Administration Hydromorphone HCl 10 mg 08/01/19 08:45 08/01/19 10:56 Hydromorphone 10 Mg/50 Ml-Ns BUSINESS INTEGRATION MANAGER 08/08/19 08:46 10 mg BUSINESS INTEGRATION MANAGER GABI Administration Protocol Cefazolin Sodium 1 gm/ 50 mls @ 100 mls/hr 07/31/19 18:00 08/01/19 09:23 Dextrose IVPB 08/01/19 17:59 100 mls/hr Q8H-IV [facility]I Administration Lactated Ringer's 1,000 ml in 1,000 mls @ 125 mls/hr 07/31/19 15:00 07/31/19 22:34 Lactated Ringers Solution IV 125 mls/hr ASDIR [facility]I Administration Phenylephrine HCl 20,000 mcg/ 250 mls @ 60 mls/hr 07/31/19 15:30 08/01/19 08: 30 Sodium Chloride IVPB 0 mcg/min ASDIR GABI 0 mls/hr Titration Protocol 80 MCG/MIN Multivitamins/Minerals/Vitamin C 1 tab 08/01/19 10:00 08/01/19 11:01 Tab-A-Vit - PO 1 tab DAILY [facility]I Administration Non-Formulary Medication 7.5 mg 08/01/19 10:00 Meloxicam [Meloxicam] PO DAILY [facility] Ondansetron HCl 4 mg 07/31/19 15:00 Zofran Injection IVPUSH Q6H PRN NAUSEA Ondansetron HCl 4 mg 08/01/19 08:45 Zofran Injection IVPUSH Q4H PRN NAUSEA AND/OR VOMITING Promethazine HCl 12.5 mg 08/01/19 08:45 Phenergan Injection - IVPB Q6H PRN NAUSEA AND/OR VOMITING Valacyclovir HCl 500 mg 08/01/19 10:00 08/01/19 11:00 Valtrex - PO 500 mg DAILY [facility] Administration ASSESSMENT/PLAN: 68 year old female with PMH significant for HTN, hypothyroidism, and degenerative lumbar scoliosis. She is POD#1 for T12-S1 laminectomies and fusion posteriorly for her lumbar scoliosis. #Neuro- s/p T12-S1 laminectomies and posterior fusion - stopped sedation medication, no active issues, A&Ox3 - pain control w dilaudid BUSINESS INTEGRATION MANAGER - PT ordered - appreciate neurosx recs #Respiratory - Extubated after CPAP trial #CVS - Weaned off phenylephrine - Continue home Losartan, Atorvastatin #ID - Ancef, Valtrex #GI - started clear liquid diet, advance as tolerated - Colace for constipation, Zofran PRN nausea, vitamins #Renal - no active issues #Endo - no active issues #FEN - none, stopped LR - hypoCa - repleted - clear liquid diet #PPX - Heparin 5000 SQ - no GI ppx #Dispo - transfer to med/surg Visit type - Emergency Visit Emergency Visit: Yes ED Registration Date: 07/31/19 Care time: The patient presented to the Emergency Department on the above date and was hospitalized for further evaluation of their emergent condition. - New Patient This patient is new to me today: Yes Date on this admission: 08/01/19 - Critical Care Critical Care patient: Yes Total Critical Care Time (in minutes): 38 Critical Care Statement: The care of this patient involved high complexity decision making to prevent further life threatening deterioration of the patient 's condition and/or to evaluate & treat vital organ system(s) failure or risk of failure. ATTENDING PHYSICIAN STATEMENT I saw and evaluated the patient. I reviewed the resident's note and discussed the case with the resident. I agree with the resident's findings and plan as documented. SUBJECTIVE: OBJECTIVE: ASSESSMENT AND PLAN:
--- NOTE | 2019-08-01 22:52 | HOSP ---
Subjective - Review of Symptoms Events since last encounter: Hospitalist Encounter Notified by the RN that the patient reports having bilateral hand swelling, was asked to assess. Arrived to bedside, patient is alert, awake and oriented, patient reports noting swelling to b/l hands since 1800. Patient reports feeling stiffness, denies parasthesias. Patient denies SOB, CP or palpitations Assessment: This is a 68 y/o woman s/p T12-S1 osteotomies with interbody cage x 3 via transpedicaular approach, deformity correction and T12-S1 fusion posteriorly Plan: Elevate b/l extremities neurovascular checks Continue with current regimen Musculoskeletal: Yes: Other (bilateral hand swelling) Physical Examination Vital Signs: Vital Signs Temperature 97.8 F 08/01/19 18:00 Pulse Rate 97 H 08/01/19 18:00 Respiratory Rate 16 08/01/19 18:00 Blood Pressure 115/70 08/01/19 18:00 O2 Sat by Pulse Oximetry (%) 99 08/01/19 15:00 Constitutional: Yes: Well Nourished, No Distress, Calm Eyes: Yes: WNL, Conjunctiva Clear, EOM Intact, PERRL HENT: Yes: WNL, Atraumatic, Normocephalic Neck: Yes: WNL, Supple, Trachea Midline Cardiovascular: Yes: WNL, Regular Rate and Rhythm, S1 Respiratory: Yes: WNL, Regular, CTA Bilaterally Gastrointestinal: Yes: WNL, Normal Bowel Sounds, Soft Breast(s): Yes: WNL Edema: Yes Edema: LUE: Trace (left hand), RUE: 1+ (right hand) Peripheral Pulses WNL: Yes Wound/Incision: Yes: Other (MONTSERRAT drain- serousangineous fluid) Neurological: Yes: WNL, Alert, Oriented ...Motor Strength: WNL Psychiatric: Yes: WNL, Alert, Oriented Labs: CBC, BMP 08/01/19 05:20 08/01/19 05:20
[2019-08-02] MEDS: HEPARIN NA (PORCINE) 5,000 UNITS/ML 1ML VIAL SQ SCH ×2 (06:08→21:54)
[2019-08-02] MEDS: DOCUSATE SODIUM 100 MG CAPSULE (FP) PO SCH ×3 (06:08→21:53)
[2019-08-02 07:56] LABS: HEMATOCRIT 24.9 % (32.4-45.2); HEMOGLOBIN 8.6 GM/dL (10.7-15.3); MCHC 34.6 g/dl (32.0-36.0); MEAN CELL VOLUME 92.4 fl (80-96); MEAN PLT VOLUME 8.4 fl (7.5-11.1); PLATELET COUNT 145 K/MM3 (134-434); RBC 2.69 M/mm3 (3.60-5.2); RDW 15.2 % (11.6-15.6); WHITE BLOOD COUNT 9.4 K/mm3 (4.0-10.0)
[2019-08-02 08:05] LABS: ALBUMIN 2.4 g/dl (3.4-5.0); BILIRUBIN,TOTAL 0.5 mg/dL (0.2-1); BLOOD UREA NITROGEN 8.3 mg/dL (7-18); CALCIUM 7.9 mg/dL (8.5-10.1); CREATININE 0.3 mg/dL (0.55-1.3); POTASSIUM 3.7 mmol/L (3.5-5.1); TOT PROT 4.3 g/dl (6.4-8.2)
[2019-08-02] MEDS: valACYclovir HCL 500 MG TABLET (FP) PO SCH (10:35)
[2019-08-02] MEDS: MULTIVITAMINS (DAILY MVI) TABLET (FP) PO SCH (10:35)
[2019-08-02] MEDS: FOLIC ACID 1 MG TABLET (FP) PO SCH (10:35)
[2019-08-02] MEDS: ATORVASTATIN CA 10 MG TABLET (FP) PO SCH ×2 (10:35→21:53)
[2019-08-02] MEDS: HYDROmorphone *PCA* 10MG/50ML DISP.SYRIN PCA SCH (10:35)
[2019-08-02] MEDS: FERROUS SO4 325 MG TABLET (FP) PO SCH (10:35)
[2019-08-02] MEDS: CHOLECALCIFEROL (VIT D3) 1,000 UNIT (25 MCG) TABLET PO SCH (10:35)
[2019-08-02] MEDS ORDERED: ACETAMINOPHEN 325 MG TABLET (FP) PO PRN (11:14)
--- NOTE | 2019-08-02 11:14 | PN ---
Progress Note (short form) - Note Progress Note: 7OF POD#2 T12-S2 decompression/fusion under GA. This afternoon pt. doing well. Pain adequately controlled with SUPERVISOR INSPECTING. Continue current management per primary team.
[2019-08-02] MEDS ORDERED: LOSARTAN POTASSIUM 25 MG TABLET PO SCH (13:00)
--- NOTE | 2019-08-02 13:24 | PN ---
Progress Note, Physician Chief Complaint: Scoliosis S/P laminectomy History of Present Illness: POD 2 Pre-Operative Diagnosis: Scoliosis Operation: T12-S1 laminectomies, osteotomies with interbody cage x3 via transpedicaular approach, deformity correction and T12-S1 fusion posteriorly Post-Operative Diagnosis: Same as Pre-op Surgeon: Amos Bob Sister at bedside - Current Medication List Current Medications: Active Medications Acetaminophen (Ofirmev Injection -) 1,000 mg IVPB Q6H PRN PRN Reason: PAIN Atorvastatin Calcium (Lipitor -) 10 mg PO DAILY [facility] Last Admin: 08/02/19 10:35 Dose: 10 mg Cholecalciferol (Vitamin D3 -) 1,000 unit PO DAILY [facility] Last Admin: 08/02/19 10:35 Dose: 1,000 unit Dexamethasone Sodium Phosphate (Decadron Injection -) 4 mg IVPUSH ONCE PRN PRN Reason: NAUSEA AND/OR VOMITING Diphenhydramine HCl (Benadryl -) 25 mg PO Q6H PRN PRN Reason: FOR ITCHING Diphenhydramine HCl (Benadryl Injection -) 12.5 mg IVPUSH ONCE PRN PRN Reason: FOR ITCHING Docusate Sodium (Colace -) 100 mg PO TID [facility] Last Admin: 08/02/19 06:08 Dose: 100 mg Ferrous Sulfate (Feosol -) 325 mg PO DAILY [facility] Last Admin: 08/02/19 10:35 Dose: 325 mg Folic Acid (Folic Acid -) 1 mg PO DAILY [facility] Last Admin: 08/02/19 10:35 Dose: 1 mg Gabapentin (Neurontin -) 100 mg PO TID [facility] Heparin Sodium (Porcine) (Heparin -) 5,000 unit SQ Q8H [facility] Last Admin: 08/02/19 06:08 Dose: 5,000 unit Hydromorphone HCl (Hydromorphone 10 Mg/50 Ml-Ns) 10 mg STRIKER OUT STRIKER OUT [facility]; Protocol Stop: 08/08/19 08:46 Last Admin: 08/02/19 10:35 Dose: 10 mg Phenylephrine HCl 20,000 mcg/ (Sodium Chloride) 250 mls @ 60 mls/hr IVPB ASDIR [facility]; Protocol Last Admin: 08/01/19 21:57 Dose: Not Given Iron Sucrose 300 mg/ Sodium (Chloride) 250 mls @ 250 mls/hr IVPB ONCE ONE Stop: 08/02/19 14:19 Losartan Potassium (Cozaar -) 25 mg PO DAILY [facility] Last Admin: 08/02/19 13:09 Dose: 25 mg Multivitamins/Minerals/Vitamin C (Tab-A-Vit -) 1 tab PO DAILY [facility] Last Admin: 08/02/19 10:35 Dose: 1 tab Non-Formulary Medication (Meloxicam [Meloxicam]) 7.5 mg PO DAILY [facility] Ondansetron HCl (Zofran Injection) 4 mg IVPUSH Q6H PRN PRN Reason: NAUSEA Last Admin: 08/01/19 14:43 Dose: 4 mg Ondansetron HCl (Zofran Injection) 4 mg IVPUSH Q4H PRN PRN Reason: NAUSEA AND/OR VOMITING Promethazine HCl (Phenergan Injection -) 12.5 mg IVPB Q6H PRN PRN Reason: NAUSEA AND/OR VOMITING Valacyclovir HCl (Valtrex -) 500 mg PO DAILY [facility] Last Admin: 08/02/19 10:35 Dose: 500 mg - Objective Vital Signs: Vital Signs Temperature 98.4 F 08/02/19 05:00 Pulse Rate 100 H 08/02/19 11:05 Respiratory Rate 18 08/02/19 11:05 Blood Pressure 152/71 08/02/19 11:05 O2 Sat by Pulse Oximetry (%) 96 08/02/19 05:30 Constitutional: Yes: Well Nourished, No Distress, Calm Cardiovascular: Yes: Regular Rate and Rhythm, Tachycardia Respiratory: Yes: Regular Gastrointestinal: Yes: Normal Bowel Sounds, Soft Genitourinary: Yes: WNL Musculoskeletal: Yes: Back Pain, Muscle Weakness Extremities: Yes: WNL Edema: No Peripheral Pulses WNL: Yes Neurological: Yes: Alert, Oriented Psychiatric: Yes: Alert, Oriented Labs: CBC, BMP 08/02/19 06:55 08/02/19 06:55 Problem List - Problems (1) Hypotension Assessment/Plan: -maintaining BP well and MAP >65 mm Hg -Resume home losartan dose at 25 mg po daily -Encouraged PO fluids -monitor trend for now Problems reviewed: Yes Code(s): I95.9 - HYPOTENSION, UNSPECIFIED (2) S/P laminectomy with spinal fusion Assessment/Plan: -Neurosurgery on board -Incentive Spirometer -pain control with IV tylenol, unable to take narcotics-->leading to N/V -Zofran on board -Start Gabapentin 100 mg po tid -dvt ppx -Physical therapy -MONTSERRAT to be removed by NS possibly on Sunday Problems reviewed: Yes Code(s): Z98.1 - ARTHRODESIS STATUS (3) Anemia Assessment/Plan: -dilutional vs surgical blood loss? -Monitor H/H stable -Low in Iron -Venofer x 1 -Iron polysaccharide 1 tab po daily -Check Stool OB -B12, TSH/FT4 unremarkable Problems reviewed: Yes Code(s): D64.9 - ANEMIA, UNSPECIFIED Assessment/Plan see problem list
[2019-08-02] MEDS ORDERED: PT OWN MED DRAWER 7, Y5N ONE (13:53)
[2019-08-02] MEDS ORDERED: IRON SUCROSE INJECTION 300 MG in SODIUM CHLORIDE 235 ML IVPB ONE (14:30)
[2019-08-02] MEDS: PATIENT'S OWN MEDICATION (NON-FORMULARY) (Meloxicam [Meloxicam] 7.5 MG) PO SCH (14:50)
--- NOTE | 2019-08-02 14:55 | EKG ---
Test Reason : Blood Pressure : / mmHG Vent. Rate : 099 BPM Atrial Rate : 099 BPM P-R Int : 180 ms QRS Dur : 080 ms QT Int : 328 ms P-R-T Axes : 068 041 052 degrees QTc Int : 420 ms NORMAL SINUS RHYTHM NORMAL ECG WHEN COMPARED WITH ECG OF 23-JAN-2019 17:10, NONSPECIFIC T WAVE ABNORMALITY NOW EVIDENT IN INFERIOR LEADS Confirmed by KONG MARINO, ROLANDO ([id number]) on 08/02/2019 2:55:37 PM Referred By: Beatriz MCCORMICK Confirmed By:ROLANDO TRIANA MD
[2019-08-02] MEDS: GABAPENTIN 100 MG CAPSULE (FP) PO SCH ×2 (15:18→21:53)
[2019-08-02] MEDS: PHENYLEPHRINE HCL 20,000 MCG in SODIUM CHLORIDE 248 ML IVPB SCH (16:40)
[2019-08-02] MEDS ORDERED: ONDANSETRON 4 MG/2 ML VIAL IVPUSH PRN (18:33)
[2019-08-02] MEDS ORDERED: diphenhydrAMINE HCL 25 MG CAPSULE (FP) PO PRN (18:33)
[2019-08-02] MEDS ORDERED: PHENYLEPHRINE HCL 20,000 MCG in SODIUM CHLORIDE 248 ML IVPB SCH (18:33)
[2019-08-02] MEDS: ACETAMINOPHEN 1000 MG/100 ML VIAL (NON FORMULARY) IVPB PRN (21:54)
--- NOTE | 2019-08-02 22:14 | PN ---
Progress Note (short form) - Note Progress Note: Patient with expected discomfort after surgery. MONTSERRAT in place. Patient able to take 5 steps with PT yesterday. - GI/DVT prophylaxis - Continue PT - Plan to remove MONTSERRAT Sunday morning and then patient should be clear for discharge to Rehab from Neurosurgery standpoint - Follow hemoglobin - Continue dry dressing on wound
[2019-08-03] MEDS: DOCUSATE SODIUM 100 MG CAPSULE (FP) PO SCH ×3 (05:37→21:29)
[2019-08-03] MEDS: GABAPENTIN 100 MG CAPSULE (FP) PO SCH (05:37)
[2019-08-03 07:01] LABS: BASO % 0.2 % (0-2.0); EOS % 0.1 % (0-4.5); HEMOGLOBIN 8.7 GM/dL (10.7-15.3); LYMPH % 15.2 % (8-40); MCH 32.3 pg (25.7-33.7); MCHC 34.7 g/dl (32.0-36.0); MEAN CELL VOLUME 93.2 fl (80-96); MEAN PLT VOLUME 8.4 fl (7.5-11.1); MONO % 6.7 % (3.8-10.2); NEUT % 77.8 % (42.8-82.8); PLATELET COUNT 152 K/MM3 (134-434); RBC 2.68 M/mm3 (3.60-5.2); RDW 14.7 % (11.6-15.6); WHITE BLOOD COUNT 7.8 K/mm3 (4.0-10.0)
[2019-08-03 07:44] LABS: ALBUMIN 2.3 g/dl (3.4-5.0); BILIRUBIN,TOTAL 0.6 mg/dL (0.2-1); BLOOD UREA NITROGEN 5.1 mg/dL (7-18); CALCIUM 7.8 mg/dL (8.5-10.1); CREATININE 0.2 mg/dL (0.55-1.3); POTASSIUM 3.1 mmol/L (3.5-5.1); TOT PROT 4.6 g/dl (6.4-8.2)
[2019-08-03] MEDS ORDERED: POTASSIUM CHLORIDE ORAL LIQUID 20 MEQ/15 ML PO ONE (07:59)
--- NOTE | 2019-08-03 08:07 | PN ---
Progress Note, Physician Chief Complaint: Scoliosis S/P laminectomy History of Present Illness: POD 3 Pre-Operative Diagnosis: Scoliosis Operation: T12-S1 laminectomies, osteotomies with interbody cage x3 via transpedicaular approach, deformity correction and T12-S1 fusion posteriorly Post-Operative Diagnosis: Same as Pre-op Surgeon: Amos Bob Feeling much better today Pain better controlled with IV acetaminophen Denies any N/V Seen by Neurosurgery MONTSERRAT intact draining moderate sanguineous fluid - Current Medication List Current Medications: Active Medications Acetaminophen (Ofirmev Injection -) 1,000 mg IVPB Q6H PRN PRN Reason: PAIN Last Admin: 08/02/19 21:54 Dose: 1,000 mg Atorvastatin Calcium (Lipitor -) 10 mg PO HS [facility] Last Admin: 08/02/19 21:53 Dose: 10 mg Cholecalciferol (Vitamin D3 -) 1,000 unit PO DAILY [facility] Dexamethasone Sodium Phosphate (Decadron Injection -) 4 mg IVPUSH ONCE PRN PRN Reason: NAUSEA AND/OR VOMITING Diphenhydramine HCl (Benadryl Injection -) 12.5 mg IVPUSH ONCE PRN PRN Reason: FOR ITCHING Diphenhydramine HCl (Benadryl -) 25 mg PO Q6H PRN PRN Reason: FOR ITCHING Docusate Sodium (Colace -) 100 mg PO TID [facility] Last Admin: 08/03/19 05:37 Dose: 100 mg Folic Acid (Folic Acid -) 1 mg PO DAILY [facility] Gabapentin (Neurontin -) 100 mg PO TID [facility] Last Admin: 08/03/19 05:37 Dose: 100 mg Heparin Sodium (Porcine) (Heparin -) 5,000 unit SQ BID [facility] Last Admin: 08/02/19 21:54 Dose: 5,000 unit Multivitamins/Minerals/Vitamin C (Tab-A-Vit -) 1 tab PO DAILY [facility] Ondansetron HCl (Zofran Injection) 4 mg IVPUSH Q6H PRN PRN Reason: NAUSEA Polysaccharide Iron Complex (Niferex-150 -) 150 mg PO DAILY [facility] Potassium Chloride (Potassium Chloride Oral Liquid) 40 meq PO ONCE ONE Stop: 08/03/19 08:00 Promethazine HCl (Phenergan Injection -) 12.5 mg IVPB Q6H PRN PRN Reason: NAUSEA AND/OR VOMITING Valacyclovir HCl (Valtrex -) 500 mg PO DAILY [facility] - Objective Vital Signs: Vital Signs Temperature 97.9 F 08/03/19 06:00 Pulse Rate 93 H 08/03/19 06:00 Respiratory Rate 18 08/03/19 06:00 Blood Pressure 145/70 08/03/19 06:00 O2 Sat by Pulse Oximetry (%) 93 L 08/02/19 22:00 Constitutional: Yes: Well Nourished, No Distress, Calm Cardiovascular: Yes: Regular Rate and Rhythm Respiratory: Yes: Regular Gastrointestinal: Yes: Normal Bowel Sounds, Soft Genitourinary: Yes: WNL Musculoskeletal: Yes: Back Pain Extremities: Yes: WNL Edema: No Peripheral Pulses WNL: Yes Wound/Incision: Yes: Dressing Dry and Intact Neurological: Yes: Alert, Oriented Psychiatric: Yes: Alert, Oriented Labs: CBC, BMP 08/03/19 06:05 08/03/19 06:05 Problem List - Problems (1) Hypotension Assessment/Plan: -maintaining BP well and MAP >65 mm Hg -Resume home losartan dose at 25 mg po daily -Encouraged PO fluids -monitor trend for now Problems reviewed: Yes Code(s): I95.9 - HYPOTENSION, UNSPECIFIED (2) S/P laminectomy with spinal fusion Assessment/Plan: -Neurosurgery on board -Incentive Spirometer -pain control with IV tylenol, unable to take narcotics-->leading to N/V -Zofran on board -Increase Gabapentin to 300 mg po tid -dvt ppx -Physical therapy -MONTSERRAT to be removed by NS possibly on Sunday Problems reviewed: Yes Code(s): Z98.1 - ARTHRODESIS STATUS (3) Anemia Assessment/Plan: -dilutional vs surgical blood loss? -H/H stable -Low in Iron -Venofer x 1 yesterday -Iron polysaccharide 1 tab po daily -Check Stool OB -B12, TSH/FT4 unremarkable Problems reviewed: Yes Code(s): D64.9 - ANEMIA, UNSPECIFIED Assessment/Plan see problem list
[2019-08-03] MEDS ORDERED: PT OWN MED DRAWER 7, Y5N ONE ×2 (09:18→14:23)
[2019-08-03] MEDS: HEPARIN NA (PORCINE) 5,000 UNITS/ML 1ML VIAL SQ SCH ×2 (10:19→21:29)
[2019-08-03] MEDS: FOLIC ACID 1 MG TABLET (FP) PO SCH (10:20)
[2019-08-03] MEDS: valACYclovir HCL 500 MG TABLET (FP) PO SCH (10:20)
[2019-08-03] MEDS: MULTIVITAMINS (DAILY MVI) TABLET (FP) PO SCH (10:20)
[2019-08-03] MEDS: CHOLECALCIFEROL (VIT D3) 1,000 UNIT (25 MCG) TABLET PO SCH (10:21)
[2019-08-03] MEDS: ACETAMINOPHEN 1000 MG/100 ML VIAL (NON FORMULARY) IVPB PRN ×2 (10:24→19:51)
[2019-08-03] MEDS: GABAPENTIN 300 MG CAPSULE (FP) PO SCH ×2 (14:45→21:29)
[2019-08-03] MEDS: IRON POLYSACCHARIDES 150 MG CAPSULE PO SCH (14:45)
[2019-08-03] MEDS: ATORVASTATIN CA 10 MG TABLET (FP) PO SCH (21:29)
[2019-08-04] MEDS: ACETAMINOPHEN 1000 MG/100 ML VIAL (NON FORMULARY) IVPB PRN (02:15)
[2019-08-04] MEDS: DOCUSATE SODIUM 100 MG CAPSULE (FP) PO SCH ×2 (06:11→14:38)
[2019-08-04] MEDS: GABAPENTIN 300 MG CAPSULE (FP) PO SCH ×2 (06:11→14:38)
[2019-08-04 06:52] LABS: BASO % 0.4 % (0-2.0); EOS % 1.3 % (0-4.5); HEMATOCRIT 24.7 % (32.4-45.2); HEMOGLOBIN 8.5 GM/dL (10.7-15.3); LYMPH % 21.6 % (8-40); MCHC 34.3 g/dl (32.0-36.0); MEAN CELL VOLUME 93.1 fl (80-96); MEAN PLT VOLUME 8.4 fl (7.5-11.1); MONO % 7.8 % (3.8-10.2); NEUT % 68.9 % (42.8-82.8); PLATELET COUNT 205 K/MM3 (134-434); RBC 2.66 M/mm3 (3.60-5.2); WHITE BLOOD COUNT 6.6 K/mm3 (4.0-10.0)
[2019-08-04 07:21] LABS: ALBUMIN 2.3 g/dl (3.4-5.0); BILIRUBIN,TOTAL 0.4 mg/dL (0.2-1); BLOOD UREA NITROGEN 5.9 mg/dL (7-18); CREATININE 0.3 mg/dL (0.55-1.3); POTASSIUM 3.6 mmol/L (3.5-5.1); TOT PROT 4.6 g/dl (6.4-8.2)
--- NOTE | 2019-08-04 09:04 | PN ---
Progress Note (short form) - Note Progress Note: POD 4, S/P T12-S1 laminectomies, osteotomies with interbody cage x3 via transpedicular approach, deformity correction and T12-S1 fusion posteriorly Pt seen and examined. Reports she is feeling much improved from the weekend. Eating/drinking without issue. Ambulated in the hallway with PT yesterday. States she is still feeling weak and looking forward to rehab. Voiding without issue, reports camarena was removed yesterday. No Bm yet, passing flatus. Denies cp /sob, n/v/d. Vital Signs Temp 98 F 08/04/19 05:00 Pulse 84 08/04/19 05:00 Resp 18 08/04/19 05:00 BP 144/58 L 08/04/19 05:00 Pulse Ox 93 L 08/03/19 21:00 Intake & Output 08/03/19 08/03/19 08/04/19 11:59 23:59 11:59 Intake Total 0 50 50 Output Total 1220 1350 Balance -1220 -1300 50 Intake: IV 0 RH#18 07/31/19 s/l 0 IVPB 0 50 50 Output: Drainage 120 50 Back 120 50 Urine 1100 1300 Camarena 1100 1300 Other: Voiding Method Indwelling Catheter Toilet Bowel Movement No Weight Measurement Method Standing Scale CBC, BMP 08/04/19 05:40 08/04/19 05:40 Gen: awake, alert, nad Resp: Unlabored on RA Back: dressing c/d/i, no surrounding erythema or ecchymosis. Bobby in place with moderate serosanguinous drainage in reservoir. Drain removed with tip intact, 4x4 and tegaderm placed. Neuro: 5/5 b/l dorsi/plantarflexion, 5/5 hip flex/ext. SILT b/l le's A/P: 68 y/o F w/ PMHx HTN, hypothyroidism, and degenerative lumbar scoliosis now POD 4, S/P T12-S1 laminectomies, osteotomies with interbody cage x3 via transpedicular approach, deformity correction and T12-S1 fusion posteriorly ( received 2 units of PRBCs intra-op), post op course c/b facial edema and delayed extubation. Afebrile, VSS Labs stable Bobby removed, tip intact -Cleared for d/c to rehab from neurosurgery standpoint -Call with questions/concerns d/w attending Dr Casanova
[2019-08-04] MEDS ORDERED: ACETAMINOPHEN 1000 MG/100 ML VIAL (NON FORMULARY) IVPB PRN (09:07)
[2019-08-04] MEDS ORDERED: PT OWN MED DRAWER 7, Y5N ONE (09:37)
--- NOTE | 2019-08-04 09:37 | DS ---
Physical Examination Vital Signs: Vital Signs Temperature 98 F 08/04/19 05:00 Pulse Rate 84 08/04/19 05:00 Respiratory Rate 18 08/04/19 05:00 Blood Pressure 144/58 L 08/04/19 05:00 O2 Sat by Pulse Oximetry (%) 93 L 08/03/19 21:00 Findings/Remarks: Laboratory Results - last 24 hr 07/31/19 08/04/19 08/04/19 06:26 05:40 05:40 WBC 6.6 RBC 2.66 L Hgb 8.5 L Hct 24.7 L MCV 93.1 MCH 32.0 MCHC 34.3 RDW 15.0 Plt Count 205 D MPV 8.4 Absolute Neuts (auto) 4.5 Neutrophils % 68.9 Lymphocytes % 21.6 D Monocytes % 7.8 Eosinophils % 1.3 D Basophils % 0.4 Nucleated RBC % 0 Sodium 139 Potassium 3.6 Chloride 106 Carbon Dioxide 29 Anion Gap 5 L BUN 5.9 L Creatinine 0.3 L Est GFR (CKD-EPI)AfAm 134.45 Est GFR (CKD-EPI)NonAf 116.01 Random Glucose 93 Calcium 8.0 L Total Bilirubin 0.4 AST 52 H ALT 66 H Alkaline Phosphatase 102 Total Protein 4.6 L Albumin 2.3 L Blood Type O POSITIVE Antibody Screen Negative Crossmatch See Detail Home Medication List Medication Instructions Recorded Confirmed Type Atorvastatin Ca [Lipitor] 10 mg PO DAILY 02/12/18 07/31/19 History Meloxicam 7.5 mg PO DAILY 02/12/18 07/31/19 History Multivitamins [Multivit ([facility] 1 tab PO DAILY 02/12/18 07/31/19 History Formulary)] Cetirizine HCl 10 mg PO DAILY 07/30/19 07/31/19 History Cholecalciferol (Vitamin D3) 1,000 unit PO DAILY 07/30/19 07/31/19 History [Vitamin D3 -] Valacyclovir HCl [Valtrex] 500 mg PO DAILY 07/30/19 07/31/19 History Famotidine 10 mg PO PRN 08/02/19 08/02/19 History Fluticasone Prop 0.05% Nasal 1 spray IH DAILY 08/02/19 08/02/19 History [Flonase -] Active Medications Generic Name Dose Route Start Last Admin Trade Name Freq PRN Reason Stop Dose Admin Acetaminophen 1,000 mg 08/04/19 09:07 Ofirmev Injection - IVPB Q6H PRN PAIN LEVEL 1-5 Atorvastatin Calcium 10 mg 08/02/19 22:00 08/03/19 21:29 Lipitor - PO 10 mg HS [facility] Administration Cholecalciferol 1,000 unit 08/03/19 10:00 08/03/19 10:21 Vitamin D3 - PO 1,000 unit DAILY [facility] Administration Dexamethasone Sodium Phosphate 4 mg 08/01/19 08:45 Decadron Injection - IVPUSH ONCE PRN NAUSEA AND/OR VOMITING Diphenhydramine HCl 12.5 mg 08/01/19 08:45 Benadryl Injection - IVPUSH ONCE PRN FOR ITCHING Diphenhydramine HCl 25 mg 08/02/19 18:33 Benadryl - PO Q6H PRN FOR ITCHING Docusate Sodium 100 mg 08/02/19 22:00 08/04/19 06:11 Colace - PO 100 mg TID [facility] Administration Folic Acid 1 mg 08/03/19 10:00 08/03/19 10:20 Folic Acid - PO 1 mg DAILY [facility] Administration Gabapentin 300 mg 08/03/19 09:34 08/04/19 06:11 Neurontin - PO 300 mg TID [facility] Administration Heparin Sodium (Porcine) 5,000 unit 08/02/19 22:00 08/03/19 21:29 Heparin - SQ 5,000 unit BID [facility] Administration Multivitamins/Minerals/Vitamin C 1 tab 08/03/19 10:00 08/03/19 10:20 Tab-A-Vit - PO 1 tab DAILY [facility] Administration Ondansetron HCl 4 mg 08/02/19 18:33 Zofran Injection IVPUSH Q6H PRN NAUSEA Polysaccharide Iron Complex 150 mg 08/03/19 10:00 08/03/19 14:45 Niferex-150 - PO 150 mg DAILY [facility] Administration Promethazine HCl 12.5 mg 08/01/19 08:45 Phenergan Injection - IVPB Q6H PRN NAUSEA AND/OR VOMITING Valacyclovir HCl 500 mg 08/03/19 10:00 08/03/19 10:20 Valtrex - PO 500 mg DAILY [facility] Administration Constitutional: Yes: No Distress, Calm Eyes: Yes: Conjunctiva Clear HENT: Yes: Atraumatic Cardiovascular: Yes: Regular Rate and Rhythm Respiratory: Yes: Regular, CTA Bilaterally Gastrointestinal: Yes: Normal Bowel Sounds, Soft Musculoskeletal: Yes: Muscle Weakness Extremities: Yes: WNL Edema: No Wound/Incision: Yes: Dressing Dry and Intact Neurological: Yes: Alert, Oriented Psychiatric: Yes: Alert, Oriented Labs: CBC, BMP 08/04/19 05:40 08/04/19 05:40 Discharge Summary Problems reviewed: Yes Reason For Visit: SCOLIOSIS W/ SUPRAJACENT THORACIC SPONDYLOSIS Current Active Problems Anemia (Acute) Hypotension (Acute) S/P laminectomy with spinal fusion (Acute) Hospital Course: Patient admitted for T12-S1 laminectomies, osteotomies with interbody cage x3 via transpedicaular approach, deformity correction and T12-S1 fusion posteriorly. Post procedure patient became hypotensive and was admitted to ICU. Patient was intubated and vented to protect airway. Patient was extubated and no adverse reactions noted, patient blood pressure remained stable. Was evaluted by PT and will need discharge to SNF for PT. MONTSERRAT drain removed by Neurosurgery and cleared for discharge. Condition: Stable - Instructions Diet, Activity, Other Instructions: Post Operative Instructions Physical Activity Resume your normal everyday activity as tolerated. No heavy lifting or exercise until seen by your surgeon. You may walk unlimited amounts and climb stairs. You may resume driving the car when you feel safe and comfortable behind the wheel and you are no longer wearing your brace. Do not operate a vehicle while taking narcotic medication. Brace If you had back surgery, wear TLSO Brace whenever out of bed. May remove to sleep and shower. Wound Care Keep your incision clean, dry and covered at all times. Apply an occlusive dressing (Saran wrap or Tegaderm) when showering to avoid getting your incision wet. Do not submerge incision or apply ointments or creams. The annita will be removed in the office in 10-14 days post-op. Diet There are no dietary restrictions. Eat healthy, high-fiber foods. Drink 6-8 glasses of liquid each day. This will assist in keeping your bowels regular. Pain Management You may take Tylenol or acetaminophen. Any pain prescription medication ordered should be taken as prescribed for moderate to severe pain. Avoid any ibuprofen (Motrin, Advil, Aleve, Toradol, etc) for 3 months unless otherwise discussed with your surgeon. Call Dr Patrick for any of the following: Severe pain not relieved by medication Fever of 101 or higher Excessive bleeding or drainage on dressing Inability to urinate Any chest pain or shortness of breath, seek Emergency Care. Call the office to confirm a post-operative appointment for 2-3 weeks post-op Amos Bob MD [facility] [address] [place] [address] Patient to follow up with PMD 1 week after discharge Follow up with Neurosurgery as scheduled pain control continue with medication as prescribed will need PT at SNF return to ER if develop severe pain, respiratory distress, chest pain, numbness or tingling to lower extremity Referrals: Amos Bob MD, [facility] [Staff Physician] - [facility] - Home Medications Comprehensive Discharge Medication List: Ambulatory Orders Atorvastatin Ca [Lipitor] 10 mg PO DAILY 02/12/18 Meloxicam 7.5 mg PO DAILY 02/12/18 Multivitamins [Multivit ([facility] Formulary)] 1 tab PO DAILY 02/12/18 Losartan Potassium [Cozaar -] 25 mg PO DAILY #30 tablet MDD 1 01/24/19 Cetirizine HCl 10 mg PO DAILY 07/30/19 Cholecalciferol (Vitamin D3) [Vitamin D3 -] 1,000 unit PO DAILY 07/30/19 Valacyclovir HCl [Valtrex] 500 mg PO DAILY 07/30/19 Famotidine 10 mg PO PRN 08/02/19 Fluticasone Prop 0.05% Nasal [Flonase -] 1 spray I[facility] DAILY 08/02/19 Docusate Sodium [Colace -] 100 mg PO TID capsule 08/04/19 Folic Acid - 1 mg PO DAILY tablet 08/04/19 Gabapentin [Neurontin -] 300 mg PO TID capsule 08/04/19 Iron Polysaccharides [Niferex-150 -] 150 mg PO DAILY capsule 08/04/19
[2019-08-04] MEDS: HEPARIN NA (PORCINE) 5,000 UNITS/ML 1ML VIAL SQ SCH (09:55)
[2019-08-04] MEDS: valACYclovir HCL 500 MG TABLET (FP) PO SCH (09:56)
[2019-08-04] MEDS: IRON POLYSACCHARIDES 150 MG CAPSULE PO SCH (09:56)
[2019-08-04] MEDS: FOLIC ACID 1 MG TABLET (FP) PO SCH (09:56)
[2019-08-04] MEDS: MULTIVITAMINS (DAILY MVI) TABLET (FP) PO SCH (09:56)
[2019-08-04] MEDS: CHOLECALCIFEROL (VIT D3) 1,000 UNIT (25 MCG) TABLET PO SCH (09:56)
[2019-08-04 17:12] VITALS: BP 158/78; PULSE 98; TEMP 99
== END 2019-08-04 18:58 | DRG 454 ==
LOC: JSAMEDAYSX 06:09 → JICU 15:17 → J8W 08-01 20:30
PROVIDERS: ADMIT Family Medicine; ATTEND Family Medicine
PROC: 0RGA071 Fusion of Thoracolumbar Vertebral Joint with Autologous Tissue Substitute, Posterior Approach, Posterior Column, Open Approach (ICD-10-PCS; 2019-07-31)
PROC: 0SG10AJ Fusion of 2 or more Lumbar Vertebral Joints with Interbody Fusion Device, Posterior Approach, Anterior Column, Open Approach (ICD-10-PCS; 2019-07-31)
PROC: 0SG1071 Fusion of 2 or more Lumbar Vertebral Joints with Autologous Tissue Substitute, Posterior Approach, Posterior Column, Open Approach (ICD-10-PCS; 2019-07-31)
PROC: 0SB20ZZ Excision of Lumbar Vertebral Disc, Open Approach (ICD-10-PCS; 2019-07-31)
PROC: 0SG30AJ Fusion of Lumbosacral Joint with Interbody Fusion Device, Posterior Approach, Anterior Column, Open Approach (ICD-10-PCS; 2019-07-31)
PROC: 0SG3071 Fusion of Lumbosacral Joint with Autologous Tissue Substitute, Posterior Approach, Posterior Column, Open Approach (ICD-10-PCS; 2019-07-31)
PROC: 01NB0ZZ Release Lumbar Nerve, Open Approach (ICD-10-PCS; 2019-07-31)
PROC: 01N80ZZ Release Thoracic Nerve, Open Approach (ICD-10-PCS; 2019-07-31)
PROC: 01NR0ZZ Release Sacral Nerve, Open Approach (ICD-10-PCS; 2019-07-31)
PROC: 0JX70ZZ Transfer Back Subcutaneous Tissue and Fascia, Open Approach (ICD-10-PCS; 2019-07-31)
PROC: B01BZZZ Fluoroscopy of Spinal Cord (ICD-10-PCS; 2019-07-31)
PROC: 30233N1 Transfusion of Nonautologous Red Blood Cells into Peripheral Vein, Percutaneous Approach (ICD-10-PCS; 2019-07-31)
PROC: 0RGA0AJ Fusion of Thoracolumbar Vertebral Joint with Interbody Fusion Device, Posterior Approach, Anterior Column, Open Approach (ICD-10-PCS; principal; 2019-07-31 08:00)
DX: M41.86 Other forms of scoliosis, lumbar region (principal); J98.11 Atelectasis; M84.48XA Pathological fracture, other site, initial encounter for fracture; M43.16 Spondylolisthesis, lumbar region; I10 Essential (primary) hypertension; E03.9 Hypothyroidism, unspecified; I95.9 Hypotension, unspecified; D64.9 Anemia, unspecified
CPT/HCPCS: 36415; 36430; 36511; 36600; 72131-TC; 76000-TC-FY; 80048; 80053; 82040; 82607; 82728; 82746; 82803; 83540; 83550; 83605; 84439; 84443; 85025; 85027; 86850; 86900; 86901; 86922; 93005; 93010; 94002; 97116-GP; 97162-GP; J0131; J1644; J1756; P9038; P9058

== ENCOUNTER 2019-09-22 17:37 | Emergency (ER) | payer OTHER, MEDICARE ==
[2019-09-22 17:58] VITALS: BP 147/69; PULSE 102; TEMP 98.6; BMI 26.0
--- NOTE | 2019-09-22 17:59 | PDOC ---
Rapid Medical Evaluation Chief Complaint: Injury Time Seen by Provider: 09/22/19 17:56 Medical Evaluation: Allergies Allergy/AdvReac Type Severity Reaction Status Date / Time codeine AdvReac Severe Vomiting Verified 07/31/19 07:27 09/22/19 17:58 This patient received a in-person evaluation in triage cc/HPI: s/p slipped and fall while walking on the sidewalk today denies headstrike, dizziness before or after fall PE: NAD unlabored breathing + swelling to left ankle, pain with weight bearing orders:xray This patient will proceed to ED for further evaluation Discharge Disposition - Diagnosis Right hip pain, Left knee pain, Lumbar strain, Foot sprain - Discharge Dispostion Disposition: HOME Condition at time of disposition: Stable - Referrals Referrals: Devorah Gallego MD [Primary Care Provider] - - Patient Instructions Additional Instructions: Continue with Tylenol and Neurontin for pain as directed. Return to the emergency room for worsening symptoms. Weight-bear as tolerated with crutches and follow-up with orthopedic surgery in 2 to 3 days for further evaluation and treatment options. - Post Discharge Activity
--- NOTE | 2019-09-22 19:04 | PDOC ---
History of Present Illness - General Chief Complaint: Injury Stated Complaint: FALL Time Seen by Provider: 09/22/19 17:56 Past History - Past Medical History Allergies/Adverse Reactions: Allergies Allergy/AdvReac Type Severity Reaction Status Date / Time codeine AdvReac Severe Vomiting Verified 07/31/19 07:27 Home Medications: Ambulatory Orders Atorvastatin Ca [Lipitor] 10 mg PO DAILY 02/12/18 Meloxicam 7.5 mg PO DAILY 02/12/18 Multivitamins [Multivit ([facility] Formulary)] 1 tab PO DAILY 02/12/18 Losartan Potassium [Cozaar -] 25 mg PO DAILY #30 tablet MDD 1 01/24/19 Cetirizine HCl 10 mg PO DAILY 07/30/19 Cholecalciferol (Vitamin D3) [Vitamin D3 -] 1,000 unit PO DAILY 07/30/19 Valacyclovir HCl [Valtrex] 500 mg PO DAILY 07/30/19 Famotidine 10 mg PO PRN 08/02/19 Fluticasone Prop 0.05% Nasal [Flonase -] 1 spray IH DAILY 08/02/19 Docusate Sodium [Colace -] 100 mg PO TID capsule 08/04/19 Folic Acid - 1 mg PO DAILY tablet 08/04/19 Gabapentin [Neurontin -] 300 mg PO TID capsule 08/04/19 Iron Polysaccharides [Niferex-150 -] 150 mg PO DAILY capsule 08/04/19 Anemia: No Asthma: No Cancer: Yes (SC skin right eyelid) Cardiac Disorders: No (afib 1 episode post op) CVA: No COPD: No CHF: No Dementia: No Diabetes: No GI Disorders: No Disorders: No HTN: Yes Hypercholesterolemia: Yes Liver Disease: No Seizures: No Thyroid Disease: No (funtional goiter) - Surgical History Orthopedic Surgery: Yes (Right THR,LEFT TOTAL KNEE;Right knee arthroscopy) - Immunization History Immunization Up to Date: No - Psycho Social/Smoking Cessation Hx Smoking History: Never smoked Have you smoked in the past 12 months: No Information on smoking cessation initiated: No Hx Alcohol Use: No Drug/Substance Use Hx: No Substance Use Type: None Hx Substance Use Treatment: No *Physical Exam - Vital Signs Last Vital Signs Temp Pulse Resp BP Pulse Ox 98.6 F 102 H 18 147/69 99 09/22/19 17:56 09/22/19 17:56 09/22/19 17:56 09/22/19 17:56 09/22/19 17:56 Discharge - Follow up/Referral Referrals: Devorah Gallego MD [Primary Care Provider] - - Patient Discharge Instructions - Post Discharge Activity
--- NOTE | 2019-09-22 20:01 | PDOC ---
History of Present Illness - General Chief Complaint: Injury Stated Complaint: FALL Time Seen by Provider: 09/22/19 17:56 - History of Present Illness Initial Comments: 09/22/19 19:58 69-year-old female complains of left foot pain and lower back pain right hip and left knee pain after a mechanical fall today while walking outside the hospital. No loss of consciousness no head injury. Past History - Past Medical History Allergies/Adverse Reactions: Allergies Allergy/AdvReac Type Severity Reaction Status Date / Time codeine AdvReac Severe Vomiting Verified 07/31/19 07:27 Home Medications: Ambulatory Orders Atorvastatin Ca [Lipitor] 10 mg PO DAILY 02/12/18 Meloxicam 7.5 mg PO DAILY 02/12/18 Multivitamins [Multivit ([facility] Form[facility])] 1 tab PO DAILY 02/12/18 Losartan Potassium [Cozaar -] 25 mg PO DAILY #30 tablet MDD 1 01/24/19 Cetirizine HCl 10 mg PO DAILY 07/30/19 Cholecalciferol (Vitamin D3) [Vitamin D3 -] 1,000 unit PO DAILY 07/30/19 Valacyclovir HCl [Valtrex] 500 mg PO DAILY 07/30/19 Famotidine 10 mg PO PRN 08/02/19 Fluticasone Prop 0.05% Nasal [Flonase -] 1 spray IH DAILY 08/02/19 Docusate Sodium [Colace -] 100 mg PO TID capsule 08/04/19 Folic Acid - 1 mg PO DAILY tablet 08/04/19 Gabapentin [Neurontin -] 300 mg PO TID capsule 08/04/19 Iron Polysaccharides [Niferex-150 -] 150 mg PO DAILY capsule 08/04/19 Anemia: No Asthma: No Cancer: Yes (SC skin right eyelid) Cardiac Disorders: No (afib 1 episode post op) CVA: No COPD: No CHF: No Dementia: No Diabetes: No GI Disorders: No Disorders: No HTN: Yes Hypercholesterolemia: Yes Liver Disease: No Seizures: No Thyroid Disease: No (funtional goiter) - Surgical History Orthopedic Surgery: Yes (Right THR,LEFT TOTAL KNEE;Right knee arthroscopy) - Immunization History Immunization Up to Date: No - Psycho Social/Smoking Cessation Hx Smoking History: Never smoked Have you smoked in the past 12 months: No Information on smoking cessation initiated: No Hx Alcohol Use: No Drug/Substance Use Hx: No Substance Use Type: None Hx Substance Use Treatment: No Review of Systems - Review of Systems Musculoskeletal: Yes: See HPI, Back Pain, Joint Pain *Physical Exam - Vital Signs Last Vital Signs Temp Pulse Resp BP Pulse Ox 98.6 F 102 H 18 147/69 99 09/22/19 17:56 09/22/19 17:56 09/22/19 17:56 09/22/19 17:56 09/22/19 17:56 - Physical Exam 09/22/19 19:58 Midline lumbar spine incision is well-healed skin color temperature normal range of motion is limited mild paralumbar musculature spasm and tenderness. Normal range of motion of the right hip left knee patient bears weight walks on toes thighs and calves soft and nontender neurovascular intact no gross sensorimotor deficit. Medical Decision Making - Medical Decision Making 09/22/19 19:59 Lumbar spine strain status post multilevel fusion. Left knee strain. No instability status post left total knee arthroplasty Right hip contusion status post right total hip arthroplasty. Left foot and ankle x-rays are negative. No acute fracture trauma destructive process. 09/22/19 19:59 Patient may weight-bear as tolerated follow-up with her orthopedic surgeon Tylenol and Neurontin as directed for pain she is already on that and cannot tolerate any other pain medications. Discharge - Discharge Information Problems reviewed: Yes Clinical Impression/Diagnosis: Right hip pain, Left knee pain, Lumbar strain, Foot sprain Condition: Stable Disposition: HOME - Admission No - Follow up/Referral Referrals: Devorah Gallego MD [Primary Care Provider] - - Patient Discharge Instructions Additional Instructions: Continue with Tylenol and Neurontin for pain as directed. Return to the emergency room for worsening symptoms. Weight-bear as tolerated with crutches and follow-up with orthopedic surgery in 2 to 3 days for further evaluation and treatment options. - Post Discharge Activity
== END 2019-09-22 21:20 | disposition home or self-care (01) ==
LOC: JER 17:37 → JERFT 17:37
DX: S39.012A Strain of muscle, fascia and tendon of lower back, initial encounter (principal); W18.39XA Other fall on same level, initial encounter; Y93.89 Activity, other specified; Y92.238 Other place in hospital as the place of occurrence of the external cause
CPT/HCPCS: 72100-TC-FY; 73523-TC-FY; 73610-TC-LT-FY; 73630-TC-LT; 99281-25

== ENCOUNTER 2021-06-03 04:06 | Day surgery (SDC) | payer OTHER, MEDICARE ==
[2021-06-03] MEDS ORDERED: LIDOCAINE HCL/PF 1% SDV 5ML VIAL ONE (07:22)
[2021-06-03] MEDS ORDERED: TRIAMCINOLONE ACET 40MG/1ML VIAL ONE (07:22)
[2021-06-03] MEDS ORDERED: BUPIVACAINE HCL/PF 0.5% (5MG/ML) 10 ML VIAL ONE (07:23)
[2021-06-03] MEDS ORDERED: LIDOCAINE HCL 1% PRESERVATIVE FREE - 30ML VIAL IJ ONE ×2 (09:03→09:04)
[2021-06-03] MEDS ORDERED: IOHEXOL 180 MG/1 ML ML IJ ONE (09:07)
[2021-06-03] MEDS ORDERED: BUPIVACAINE HCL/PF 0.75% 10 ML VIAL NR ONE (09:08)
[2021-06-03 09:56] VITALS: BP 133/65; PULSE 74; TEMP 97.6
== END 2021-06-03 10:35 | disposition home or self-care (01) ==
LOC: JASU-SURG 04:06
PROVIDERS: ATTEND Pain Medicine Pain Medicine
PROC: BR16YZZ Fluoroscopy of Lumbar Facet Joint(s) using Other Contrast (ICD-10-PCS; 2021-06-03)
PROC: 3E0T3BZ Introduction of Anesthetic Agent into Peripheral Nerves and Plexi, Percutaneous Approach (ICD-10-PCS; principal; 2021-06-03 08:30)
DX: M47.816 Spondylosis without myelopathy or radiculopathy, lumbar region (principal); I10 Essential (primary) hypertension
CPT/HCPCS: 76000-TC-FY

== ENCOUNTER 2021-06-21 04:41 | Day surgery (SDC) | payer OTHER, MEDICARE ==
[2021-06-21] MEDS ORDERED: LIDOCAINE HCL 1% PRESERVATIVE FREE - 30ML VIAL IJ ONE (12:18)
[2021-06-21 14:36] VITALS: BP 150/67; PULSE 85; TEMP 98
== END 2021-06-21 14:10 | disposition home or self-care (01) ==
LOC: JASU-SURG 04:41
PROVIDERS: ATTEND Pain Medicine Pain Medicine
PROC: 01HY3MZ Insertion of Neurostimulator Lead into Peripheral Nerve, Percutaneous Approach (ICD-10-PCS; principal; 2021-06-21 10:30)
DX: G89.4 Chronic pain syndrome (principal)
CPT/HCPCS: 64555; C1778; 76000-TC-FY

== ENCOUNTER 2021-08-09 04:29 | Day surgery (SDC) | payer OTHER, MEDICARE ==
[2021-08-08 14:14] VITALS: BMI 30.2
[2021-08-09] MEDS ORDERED: LIDOCAINE HCL/PF 1% SDV 5ML VIAL ONE (07:03)
[2021-08-09] MEDS ORDERED: BUPIVACAINE HCL/PF 0.5% (5MG/ML) 10 ML VIAL ONE (07:04)
[2021-08-09] MEDS ORDERED: BUPIVACAINE HCL/PF 0.25% (2.5MG/ML) 10 ML VIAL ONE (07:04)
[2021-08-09] MEDS ORDERED: BUPIVACAINE HCL/PF 0.75% 10 ML VIAL ONE (07:04)
[2021-08-09] MEDS ORDERED: LIDOCAINE HCL/PF 2% SDV 5ML VIAL ONE (07:20)
[2021-08-09] MEDS ORDERED: SODIUM CHLORIDE 0.9% P/F 10 ML VIAL IJ ONE (07:20)
[2021-08-09] MEDS ORDERED: IOHEXOL 180 MG/1 ML ML IJ ONE (08:28)
[2021-08-09] MEDS ORDERED: LIDOCAINE 1% P/F 10 MG/ML VIAL INF ONE ×2 (08:28)
[2021-08-09] MEDS ORDERED: DEXAMETHASONE SOD PHOSPHATE 10 MG/1 ML VIAL IVPUSH ONE ×2 (08:29)
[2021-08-09] MEDS ORDERED: DEXAMETHASONE SOD PHOSPHATE 10 MG/1 ML VIAL ONE (09:38)
[2021-08-09 10:37] VITALS: BP 170/88; PULSE 72; TEMP 97
== END 2021-08-09 09:30 | disposition home or self-care (01) ==
LOC: JASU-SURG 04:29
PROVIDERS: ATTEND Pain Medicine Pain Medicine
PROC: 3E0R33Z Introduction of Anti-inflammatory into Spinal Canal, Percutaneous Approach (ICD-10-PCS; 2021-08-09)
PROC: B01BYZZ Fluoroscopy of Spinal Cord using Other Contrast (ICD-10-PCS; 2021-08-09)
PROC: 3E0R3BZ Introduction of Anesthetic Agent into Spinal Canal, Percutaneous Approach (ICD-10-PCS; principal; 2021-08-09 08:00)
DX: M54.16 Radiculopathy, lumbar region (principal); I10 Essential (primary) hypertension
CPT/HCPCS: 76000-TC-FY; J1100

== ENCOUNTER 2021-09-16 05:23 | Day surgery (SDC) | payer OTHER, MEDICARE ==
[2021-09-14 11:21] VITALS: BMI 31.7
[2021-09-16] MEDS ORDERED: ACETAMINOPHEN INJECTION 100 ML IVPB ONE (11:11)
[2021-09-16] MEDS ORDERED: PROPOFOL 20 ML ONE ×2 (11:17)
[2021-09-16] MEDS ORDERED: DEXAMETHASONE SOD PHOSPHATE 4 MG/1 ML VIAL ONE (11:17)
[2021-09-16] MEDS ORDERED: KETOROLAC TROMETHAMINE 30 MG/1 ML VIAL ONE (11:17)
[2021-09-16] MEDS ORDERED: MIDAZOLAM HCL 2 MG/2 ML SINGLE DOSE VIAL ONE (11:17)
[2021-09-16] MEDS ORDERED: LIDOCAINE HCL/PF 2% SDV 5ML VIAL ONE (11:17)
[2021-09-16] MEDS ORDERED: ceFAZolin SODIUM 1 GM VIAL ONE (11:41)
[2021-09-16] MEDS ORDERED: LIDOCAINE HCL 1%, 10 MG/ML (20ML VIAL) NR ONE (11:48)
[2021-09-16] MEDS ORDERED: LIDOCAINE HCL/PF 2% SDV 5ML VIAL SNB ONE (11:48)
[2021-09-16] MEDS ORDERED: ceFAZolin SODIUM 1 GM VIAL IVPB ONE (12:08)
[2021-09-16] MEDS ORDERED: ACETAMINOPHEN 325 MG TABLET (FP) PO PRN (13:46)
[2021-09-16] MEDS ORDERED: ONDANSETRON 4 MG/2 ML VIAL IVPUSH PRN (13:46)
[2021-09-16] MEDS ORDERED: LACTATED RINGERS SOLUTION 1,000 ML IV SCH (14:00)
[2021-09-16 16:20] VITALS: BP 134/83; TEMP 98.8
[2021-09-16 16:39] VITALS: PULSE 97
== END 2021-09-16 16:15 | disposition home or self-care (01) ==
LOC: JASU-SURG 05:23
PROVIDERS: ATTEND Pain Medicine Pain Medicine
PROC: 4B01XVZ Measurement of Peripheral Nervous Stimulator, External Approach (ICD-10-PCS; 2021-09-16)
PROC: 00HU3MZ Insertion of Neurostimulator Lead into Spinal Canal, Percutaneous Approach (ICD-10-PCS; principal; 2021-09-16 11:30)
DX: M96.1 Postlaminectomy syndrome, not elsewhere classified (principal)
CPT/HCPCS: 63650; C1897; 76000-TC-FY; 94760

== ENCOUNTER 2021-11-04 04:26 | Day surgery (SDC) | payer OTHER, MEDICARE ==
[2021-10-31 12:43] VITALS: BMI 32.6
[2021-11-04] MEDS ORDERED: LIDOCAINE HCL/PF 2% SDV 5ML VIAL ONE (07:31)
[2021-11-04] MEDS ORDERED: PROPOFOL 20 ML ONE ×3 (07:31→07:49)
[2021-11-04] MEDS ORDERED: MIDAZOLAM HCL 2 MG/2 ML SINGLE DOSE VIAL ONE (07:31)
[2021-11-04] MEDS ORDERED: LIDOCAINE 1%/EPI 1:100000 (20 ML MULTI DOSE VIAL) ONE (07:33)
[2021-11-04] MEDS ORDERED: THROMBIN (BOVINE) 20,000 UNIT VIAL TP ONE (07:37)
[2021-11-04] MEDS ORDERED: SCOPOLAMINE HYDROBROMIDE 1 PATCH PATCH.TD72 ONE (07:38)
[2021-11-04] MEDS ORDERED: ROCURONIUM BROMIDE 50 MG/5 ML SYRINGE ONE (07:49)
[2021-11-04] MEDS ORDERED: LIDOCAINE 1%/EPI 1:100000 (20 ML MULTI DOSE VIAL) IJ ONE ×2 (08:12→09:14)
[2021-11-04] MEDS ORDERED: THROMBIN (BOVINE) 5,000 UNIT VIAL TP ONE ×2 (08:13→09:30)
[2021-11-04] MEDS ORDERED: ceFAZolin 2 GRAM PREMIX BAG IVPB ONE ×2 (08:13→09:15)
[2021-11-04] MEDS ORDERED: VANCOMYCIN 1 GM in D5W (PRE-DOCKED) 1,000 MG/250 ML IVPB ONE ×2 (08:13→08:40)
[2021-11-04] MEDS ORDERED: GENTAMICIN SO4 80 MG/2 ML VIAL IVPB ONE ×2 (08:14→09:40)
[2021-11-04] MEDS ORDERED: HYDROGEN PEROXIDE 473 ML PO ONE ×2 (08:14→09:45)
[2021-11-04] MEDS ORDERED: BUPIVACAINE LIPOSOME/PF (EXPAREL) 266 MG/20 ML VIAL NR ONE ×2 (08:15→10:23)
[2021-11-04] MEDS ORDERED: BUPIVACAINE HCL/PF 0.5% (5MG/ML) 10 ML VIAL IJ ONE ×2 (08:15→10:23)
[2021-11-04] MEDS ORDERED: VANCOMYCIN 1,000 MG VIAL (RESTRICTED TO ID ONLY) ONE (09:02)
[2021-11-04] MEDS ORDERED: ceFAZolin SODIUM 1 GM VIAL ONE (09:02)
[2021-11-04] MEDS ORDERED: ONDANSETRON 4 MG/2 ML VIAL ONE (11:12)
[2021-11-04] MEDS ORDERED: ONDANSETRON 4 MG/2 ML VIAL IVPUSH ONE (11:14)
[2021-11-04] MEDS ORDERED: ONDANSETRON 4 MG/2 ML VIAL IVPUSH PRN ×2 (12:17→14:20)
[2021-11-04] MEDS ORDERED: ACETAMINOPHEN 1000 MG/100 ML BAG IVPB ONE ×2 (12:19→12:24)
[2021-11-04] MEDS ORDERED: PROMETHAZINE HCL 25 MG/1 ML VIAL ONE (13:57)
[2021-11-04] MEDS ORDERED: PROMETHAZINE HCL 25 MG/1 ML VIAL IVPB ONE (14:00)
[2021-11-04] MEDS ORDERED: oxyCODONE HCL 5 MG TABLET PO PRN ×2 (14:20)
[2021-11-04] MEDS ORDERED: diphenhydrAMINE HCL 25 MG CAPSULE (FP) PO PRN (14:20)
[2021-11-04] MEDS ORDERED: morphine SULFATE 4 MG/ML VIAL IVPUSH PRN (14:20)
[2021-11-04] MEDS ORDERED: HEPARIN NA (PORCINE) 5,000 UNITS/ML 1ML VIAL ONE (19:12)
[2021-11-04] MEDS: HEPARIN NA (PORCINE) 5,000 UNITS/ML 1ML VIAL SQ SCH (19:17)
[2021-11-04] MEDS: DOCUSATE SODIUM 100 MG CAPSULE (FP) PO SCH (21:34)
[2021-11-04] MEDS: LACTATED RINGERS SOLUTION 1,000 ML IV SCH (22:50)
[2021-11-05] MEDS: ACETAMINOPHEN 325 MG TABLET (FP) PO PRN ×4 (00:40→20:29)
[2021-11-05] MEDS: HEPARIN NA (PORCINE) 5,000 UNITS/ML 1ML VIAL SQ SCH ×3 (02:25→17:45)
[2021-11-05] MEDS: DOCUSATE SODIUM 100 MG CAPSULE (FP) PO SCH ×3 (05:24→21:08)
[2021-11-05] MEDS: FERROUS SO4 325 MG TABLET (FP) PO SCH (08:59)
[2021-11-05] MEDS: FOLIC ACID 1 MG TABLET (FP) PO SCH (10:39)
[2021-11-05] MEDS: LACTATED RINGERS SOLUTION 1,000 ML IV SCH (13:30)
[2021-11-06] MEDS: HEPARIN NA (PORCINE) 5,000 UNITS/ML 1ML VIAL SQ SCH ×2 (01:08→09:16)
[2021-11-06 04:29] VITALS: TEMP 98.4
[2021-11-06] MEDS: ACETAMINOPHEN 325 MG TABLET (FP) PO PRN ×2 (05:17→09:16)
[2021-11-06] MEDS: DOCUSATE SODIUM 100 MG CAPSULE (FP) PO SCH (05:18)
[2021-11-06] MEDS: FERROUS SO4 325 MG TABLET (FP) PO SCH (09:17)
[2021-11-06] MEDS: FOLIC ACID 1 MG TABLET (FP) PO SCH (09:17)
[2021-11-06 11:00] VITALS: BP 149/74; PULSE 71
== END 2021-11-06 12:51 | disposition home or self-care (01) ==
LOC: JASUSAT 04:26 → J6S 21:01 → JASUSAT 11-06 12:51
PROVIDERS: ATTEND Neurological Surgery
PROC: 01HY3MZ Insertion of Neurostimulator Lead into Peripheral Nerve, Percutaneous Approach (ICD-10-PCS; 2021-11-04)
PROC: BR17ZZZ Fluoroscopy of Thoracic Spine (ICD-10-PCS; 2021-11-04)
PROC: 0JH70CZ Insertion of Single Array Rechargeable Stimulator Generator into Back Subcutaneous Tissue and Fascia, Open Approach (ICD-10-PCS; principal; 2021-11-04 08:00)
DX: G89.4 Chronic pain syndrome (principal); M41.9 Scoliosis, unspecified
CPT/HCPCS: 63655; 63685; C1767; C1778; 76000-TC-FY; 94010; 94760; J0131; J1644

== ENCOUNTER 2024-05-30 03:51 | Day surgery (SDC) | payer OTHER, MEDICARE ==
[2024-05-28 12:25] VITALS: BMI 34.5
[2024-05-30] MEDS ORDERED: LIDOCAINE HCL/PF 1% SDV 5ML VIAL ONE (07:14)
[2024-05-30] MEDS: LIDOCAINE HCL 1% PRESERVATIVE FREE - 30ML VIAL IJ ONE (09:33)
[2024-05-30 13:33] VITALS: BP 149/64; PULSE 82; RESP 20; TEMP 97.2
[2024-05-30] MEDS ORDERED: ACETAMINOPHEN 500 MG TABLET (FP) PO PRN (15:52)
== END 2024-05-30 11:15 | disposition home or self-care (01) ==
LOC: JASU-SURG 03:51
PROVIDERS: ATTEND Pain Medicine Pain Medicine
PROC: 01HY3MZ Insertion of Neurostimulator Lead into Peripheral Nerve, Percutaneous Approach (ICD-10-PCS; principal; 2024-05-30 09:29)
DX: G89.4 Chronic pain syndrome (principal); M54.50 Low back pain, unspecified
CPT/HCPCS: 64555; C1778; 76000-TC-FY